=== PATIENT | male | born 1995 | race Caucasian/White ===

== ENCOUNTER 2020-03-25 12:00 | Emergency (ER) | payer OTHER, SELFPAY ==
--- NOTE | 2020-03-25 | XR_ITS ---
EXAMINATION: RIGHT ANKLE AND FOOT X-RAY CLINICAL INFORMATION: Pain. Trauma. COMPARISON: Previous x-ray February 2020 TECHNIQUE: 3 views of the right foot and 3 views of the right ankle FINDINGS: Right foot: Bone alignment is normal. No fracture or dislocation is seen. The joint spaces are normal. There is a plantar calcaneal spur. Soft tissues are otherwise normal. Right ankle: Bone alignment is normal. No fracture or dislocation is seen. The ankle mortise is normal. Soft tissues are normal. IMPRESSION: No fracture or dislocation seen.
--- NOTE | 2020-03-25 12:14 | ED.LOWEXIN ---
HPI - Extremity Injury (Lower) General Chief Complaint: Extremity Injury, Lower Stated Complaint: rt foot pain Time Seen by Provider: 03/25/20 12:10 Source: patient Mode of arrival: ambulatory Limitations: language barrier ( motor vehicle parts interpreter used) History of Present Illness HPI Narrative: R foot/ankle injury 3 weeks ago at work. Seen per patient and had negative x-rays. Placed on melecio wrap and given crutches. Patient tells me he has returned to work and works 12 hour days on his feet. he has not used the melecio wrap. He uses the crutches when he is not working. He has continued pain, swelling. He does not have a PCP for follow-up. MD complaint: ankle injury and foot injury Onset (ago): week(s) (3 weeks ago) Type of Injury: inversion Place: work Severity: moderate Relieving factors: immobilization and rest Exacerbating factors: weight bearing, movement and palpation Other symptoms: none Related Data Allergies Allergy/AdvReac Type Severity Reaction Status Date / Time latex [LATEX] Allergy Unknown RASH Unverified 03/04/20 19:27 Review of Systems Review of Systems: Yes all other systems are reviewed and are negative Constitutional: Constitutional: Reports no additional constitutional complaints, Denies body ache(s), Denies chills, Denies fever(s), Denies headache(s) and Denies weakness Eyes: Eyes: Reports no additional eye complaints and Denies change in vision ENT: Reports system reviewed and no additional complaints, except as documented, Denies dizziness, Denies headache(s), Denies nasal congestion, Denies nasal discharge and Denies neck pain Cardiovascular: Cardiovascular: Reports no additional cardiovascular complaints, Denies chest pain, Denies leg edema and Denies dyspnea Respiratory: Respiratory: Reports no additional respiratory complaints, Denies cough and Denies dyspnea Gastrointestinal: Gastrointestinal: Reports no additional gastrointestinal complaints, Denies abdominal pain, Denies diarrhea, Denies nausea and Denies vomiting Genitourinary: Genitourinary: Denies urinary incontinence Musculoskeletal: Musculoskeletal: Reports no additional musculoskeletal complaints, Denies back pain, Reports arthralgias, Reports joint swelling, Reports limited range of motion, Denies neck pain, Denies numbness and Denies tingling Integumentary/Breasts: Skin/Breast: Reports system reviewed and no additional complaints, except as docu and Denies rash Neurologic: Reports system reviewed and no additional complaints, except as documented, Denies Abnormal speech present, Denies dizziness, Denies headache(s), Denies numbness, Denies tingling and Denies weakness PMFSH Past Medical History Attestation statement: The following information was validated with the patient. Source: obtained from family and nursing notes reviewed Medical History Hypertension Social History Social History Advance Directives: No Advance Directives Information Provided: No Physical Exam Vital Signs and I&O and Narrative: Vital Signs and I&O: Vital Signs Temp 98 F 03/25/20 12:15 Pulse 100 03/25/20 13:23 Resp 19 03/25/20 13:23 BP 161/103 H 03/25/20 13:23 Pulse Ox 97 03/25/20 13:23 Intake & Output 03/24/20 03/25/20 03/25/20 18:59 06:59 18:59 Weight 127.006 kg Body Mass Index 39.0 Const: General: cooperative, healthy appearing, comfortable and no acute distress Orientation/consciousness: patient oriented x3 Limitations: no limitations HENMT: Head: Yes normal to inspection Ears: hearing grossly normal bilaterally General nose exam: Normal external nose present Face and sinus: Yes normal facial exam Mouth: Normal oral and palatal mucosa present Throat: Yes posterior oropharynx normal Eyes: General: appearance normal, both eyes and all related structures Pupils: Equal, round and reactive pupils present Neck: Neck: Yes normal visual inspection Chest: Chest palpation & inspection: normal inspection of the chest Resp: Effort & Inspection: normal respiratory effort Auscultation: clear to auscultation bilaterally Cardio: Rate: regular rate Rhythm: regular rhythm Peripheral pulses: Peripheral pulses 2+ throughout GI: Inspection: Yes normal to inspection Palpation (GI): Soft to palpation and nontender Auscultation: normal bowel sounds Back/Spine/Pelvis: Thoracic/Lumbar Spine: thoracic and lumbar spine normal to inspection Skin: General skin exam: no rashes or lesions noted Neuro: General: patient oriented x3, no focal motor deficits and normal sensation to monofilament Cranial nerves: Yes Equal, round and reactive pupils present Cognition (Neuro): normal cognition Speech: No Abnormal speech present Gait exam (Neuro): Normal gait present Motor exam (neuro): 5/5 motor strength present throughout Extrem: Other: pain on palpation over the anterior, medial ankle. Pain on palpation over the base of the 5th metatarsal. There is some ecchymosis over the dorsal aspect of the foot with some mild moderate swelling over the dorsal foot and medial and lateral ankle. Patient has pain with dorsal toe and plantar flexion but is able. Neurovascularly intact distally. General: Yes normal to inspection MDM - Extremity Injury (Lower) MDM Narrative Medical decision making narrative: Asymptomatic hypertension. Patient tells me he was taking medications for hypertension in [place] but moved here. He has been off his medicines for several months. He does have insurance but is having difficulty finding a primary care doctor. X-rays unremarkable. Likely sprain. It sounds like the patient has not been following previous recommendations for supportive care. I reinforced this as well as follow-up with [facility] is was a work related injury. Imaging Data ankle and foot x-ray: Attestation: I personally reviewed and interpreted this imaging study as follows: My impression: unremarkable Radiologist's impression: unremarkable no bony abnormality. Discharge Plan Discharge Clinical Impression: Ankle sprain and strain Patient Disposition: Home, Self-Care Instructions: Ankle Sprain (ED) Additional Instructions: Ice, elevation on 3 or more pillows Strict nonweightbearing Melecio wrap and crutches at all times Call [facility] for a follow-up appointment. [phone] Please establish a primary care doctor to manage your blood pressure Stand Alone Forms: Work/School Release Interventions: ED Discharge Assessment Last Done: 03/25/20 13:26 Discharge Date/Time: 03/25/20 13:27
[2020-03-25 12:15] VITALS: BP 172/103; PULSE 111; RESP 16; TEMP 36.6; O2SAT 98; BMI 39.0
[2020-03-25 13:23] VITALS: BP 161/103; PULSE 100; RESP 19; O2SAT 97
== END 2020-03-25 13:27 | disposition home or self-care (01) ==
PROVIDERS: Emergency Provider Internal Medicine
DX: S93.401A Sprain of unspecified ligament of right ankle, initial encounter (principal); S96.911A Strain of unspecified muscle and tendon at ankle and foot level, right foot, initial encounter; X58.XXXA Exposure to other specified factors, initial encounter; I10 Essential (primary) hypertension; Y93.9 Activity, unspecified; Y92.9 Unspecified place or not applicable; Y99.0 Civilian activity done for income or pay
CPT/HCPCS: 73610; 73630; 99283

== ENCOUNTER → 2020-04-05 10:22 | Outpatient (BNVA) | payer OTHER, SELFPAY | PROVIDERS: Visit Provider Physician Assistant Medical | DX: S93.401D Sprain of unspecified ligament of right ankle, subsequent encounter (principal); X58.XXXD Exposure to other specified factors, subsequent encounter | CPT/HCPCS: 99202 ==

== ENCOUNTER → 2020-04-09 11:49 | Outpatient (BNVA) | payer OTHER, SELFPAY | PROVIDERS: Visit Provider Physician Assistant Medical | DX: S93.401D Sprain of unspecified ligament of right ankle, subsequent encounter (principal); X58.XXXD Exposure to other specified factors, subsequent encounter; R20.2 Paresthesia of skin | CPT/HCPCS: 99213 ==

== ENCOUNTER → 2020-04-20 12:55 | Outpatient (BNVA) | payer OTHER, SELFPAY | PROVIDERS: Visit Provider Orthopaedic Surgery | DX: S93.401A Sprain of unspecified ligament of right ankle, initial encounter (principal) | CPT/HCPCS: 99202 ==

== ENCOUNTER → 2020-04-23 14:26 | Outpatient (BNVA) | payer OTHER, SELFPAY | PROVIDERS: Visit Provider Physician Assistant Medical | DX: S93.401D Sprain of unspecified ligament of right ankle, subsequent encounter (principal); S93.601D Unspecified sprain of right foot, subsequent encounter; X58.XXXD Exposure to other specified factors, subsequent encounter | CPT/HCPCS: 99213 ==

== ENCOUNTER 2020-04-28 15:00 | Outpatient (RCR) | payer OTHER, SELFPAY ==
--- NOTE | 2020-04-08 16:36 | MHC.PT.EP ---
[facility] [place] Office [place] Office [place] Office [address] [phone] F: [phone] F: [phone] F: [phone] F: [phone] Physical Therapy Plan of Care Date of Evaluation: 04/08/20 Date of Surgery: NA Diagnosis: R ankle sprain Assessment: 24 year old male referred for R ankle sprain . Pt reports of injuring his ankle at work about a month back. He injured himself while getting off a pellet gaurang. Per pt the pellet gaurang ran over his foot. Pt went to the ED after the injury where XRAY was done and he was sent back home. Per pt he returned back to work the next day. He had increased swelling after a few hours of work and was sent back to the ED. Pt was then advised to follow up with WC. Examination reveals 5/10 pain at rest and 7/10 pain with standing and walking, TTP around ankle joint line, decreased ankle ROM, decreased ankle muscle strength, altered posture, balance and gait. He lives with his who performs all the iADLs of the house and helps him with dressing lower body. He has been using a shower chair for showering. 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 He is a good candidate for PT based on age, goals, physical impairment and functional limitations. He would benefit from PT with ankle ROM exercises, B LE strengthening, stretches, balance training, gait training and functional training. Frequency and Duration: The patient will be seen 2/week for 5 weeks Short Term Goals: 1. Pt will have 50% decrease in pain in 2 weeks. 2. Pt will be able to move ankle through all planes of motion without pain in 3 weeks. Sonography Technician Goals: 1. Pt will be able to perform all ADLS without pain in 4 weeks. 2. Pt will return to PLOF in 5 weeks. Treatment Plan: Modalities to reduce pain, spasms and effusion. Manual therapy to restore motion and function. Therapeutic exercise to improve strength and flexibility. Neuromuscular re-education for posture and balance. Therapeutic activities to return to functional activities of daily living. Please sign and return to therapist. Thank you for your referral.
--- NOTE | 2020-05-31 15:51 | MHC.PT.DC ---
[facility] [place] Office [place] Office [place] Office [address] Veras [address] [phone] F: [phone] F: [phone] F: [phone] F: [phone] Physical Therapy Discharge Report Diagnosis: R ankle sprain Date of Surgery: injury 02/24 Date of Evaluation: 04/08/20 Date of Discharge: 05/31/20 Treatments to Date: 6 Cancellations to Date: 0 No Shows to Date: 0 Discharge Status: Improved Function Discharge Summary: Pt stated having improvements in the last few visits. Pt was suppose to be d/c from therapy in 2 visits however he canceled them due to family emergency. Pt did not return to therapy after. Pt therefore d/c from therapy. Electronically signed by: Zhane Pina DPT Please sign and return to therapist. Thank you for your referral.
== END 2020-05-31 15:52 | disposition other institution (70) ==
LOC: HO.PT 15:00
PROVIDERS: Visit Provider Physician Assistant Medical
DX: S93.401D Sprain of unspecified ligament of right ankle, subsequent encounter (principal); S93.601D Unspecified sprain of right foot, subsequent encounter
CPT/HCPCS: 97110; 97140; 97161; 97530

== ENCOUNTER → 2020-05-05 15:09 | Outpatient (BNVA) | payer OTHER, SELFPAY | PROVIDERS: PCP Internal Medicine; Visit Provider Physician Assistant Medical | DX: S93.401D Sprain of unspecified ligament of right ankle, subsequent encounter (principal); S93.601D Unspecified sprain of right foot, subsequent encounter; X58.XXXD Exposure to other specified factors, subsequent encounter | CPT/HCPCS: 99213 ==

== ENCOUNTER 2020-09-17 09:00 | Outpatient (REF) | payer OTHER, SELFPAY ==
[2020-09-17 09:37] LABS: MANUAL DIFF FLAG NO
[2020-09-17 09:55] LABS: Basophils Percent Auto 0.5 % (0-2); Eosinophils Absolute Auto 0.2 X10*3/uL (0.0-0.4); Eosinophils Percent Auto 2.9 % (0-4); Hematocrit 49.7 % (42-52); Imm Gran Abs Auto 0.02 X10*3/uL (0.00-0.03); Imm Gran Pct Auto 0.3 % (0.0-0.4); Lymphocytes Absolute Auto 2.7 X10*3/uL (1.2-4.9); Lymphocytes Percent Auto 41.5 % (20-40); Mean Corpuscular HGB Conc 34.2 g/dl (31.0-36.0); Mean Corpuscular Hemoglobin 31.5 pg (27.0-33.0); Monocytes Absolute Auto 0.6 X10*3/uL (0.1-1.2); Monocytes Percent Auto 9.7 % (2-11); Neutrophils Percent Auto 45.1 % (45-73); Platelet Count 274 X10*3/uL (160-400); Red Cell Distribution Width 12.4 % (11.0-16.0); White Blood Count 6.6 X10*3/uL (4.8-10.8)
[2020-09-17 10:32] LABS: Anion Gap 14 (12-20); Blood Urea Nitrogen 23 mg/dL (9-16); Calcium 8.9 mg/dL (8.4-10.2); Carbon Dioxide 28 mmol/L (22-29); Chloride 104 mmol/L (96-108); Cholesterol 183 mg/dL; Estimated Glomerular Filt Rate > 60; Glucose Fasting 116 mg/dL (60-99); HDL Cholesterol 32 mg/dL; LDL Cholesterol Calculated 110 mg/dl; Potassium 4.5 mmol/L (3.3-5.1); Sodium 141 mmol/L (135-145); Triglycerides 209 mg/dL
== END 2020-09-17 09:01 | disposition home or self-care (01) ==
LOC: HO.LAB 09:00
PROVIDERS: PCP Internal Medicine; Visit Provider Nurse Practitioner Family
DX: I10 Essential (primary) hypertension (principal)
CPT/HCPCS: 36415; 80048; 80061; 85025

== ENCOUNTER → 2021-04-06 15:03 | Outpatient (REF) | payer OTHER, SELFPAY ==
--- NOTE | 2021-04-06 15:06 | HM_ITS ---
Total monitoring time 4 days and 12 hours. Underlying rhythm is sinus. Minimum heart rate 57/Min. Maximum 143/Min. Average 93/Min. No atrial fibrillation of flutter. No pauses. No significant ectopy, tachy or Vern arrhythmias. No patient events. MTDD
== END ==
LOC: HO.CARD 15:03
PROVIDERS: Visit Provider Internal Medicine
DX: R00.0 Tachycardia, unspecified (principal)
CPT/HCPCS: 93242

== ENCOUNTER 2021-08-08 12:23 | Emergency (ER) | payer OTHER, SELFPAY ==
--- NOTE | ~2021-08-08 | XR_ITS ---
EXAMINATION: XR ANKLE, RIGHT CLINICAL INFORMATION: Right ankle injury. Pain. COMPARISON: None TECHNIQUE: AP, lateral, and mortise views of the right ankle. FINDINGS: The bones and soft tissues are normal. No fracture. Alignment is anatomic. Joint spaces are maintained. No joint effusion. There is a small calcaneal heel enthesophyte. There is dorsal talonavicular spurring. XR/XR ankle RT min 3V IMPRESSION: Small calcaneal heel enthesophyte. Mild dorsal talonavicular spurring. No visible acute fracture or dislocation seen.
[2021-08-08 13:29] VITALS: BP 164/92; PULSE 80; RESP 18; TEMP 36.8; O2SAT 97; BMI 41.1
[2021-08-08] MEDS: Ibuprofen 600 MG TABLET PO (13:34)
--- NOTE | 2021-08-08 14:26 | ED_ITS ---
HPI - General Adult General Chief complaint: Extremity Injury, Lower Stated complaint: foot pain Time Seen by Provider: 08/08/21 13:33 Source: patient, family and RN notes reviewed Mode of arrival: ambulatory Limitations: no limitations History of Present Illness HPI narrative: 26-year-old male is here today for complaining of right foot pain. Patient reports that he injured his foot one year ago at work. Patient reports that machine at work drove over the top of his foot. He states that his foot was doing well, and he had no pain. Patient reports that yesterday when he walked home from work he had increased pain in his right foot. Patient describes that the pain is in his heel and extends to the middle of his foot. Patient reports that the pain is worse when he is touching it. Patient reports that even slightest touch hurts his heel and bottom of his foot. Patient does report to have mild swelling without any redness or inflammation. Patient denies any new injury. Patient reports that he wears protective shoes at work and he did not step on anything sharp that could cause the pain. Patient was wearing steel boots at work yesterday and walked home in them. Reports of swelling to the bernadette soto of his foot, heal and inner ankle. Onset (ago): day(s) Related Data Previous Rx's Medication Instructions Recorded halobetasol propionate 0.05 % 1 applic TOPICAL BID 30 Days #15 g 05/10/20 topical cream clotrimazole-betamethasone 1 1 appl TOPICAL BID 14 Days #45 g 08/10/20 %-0.05 % topical cream lisinopril 20 1 tab PO DAILY #30 tab 03/22/21 mg-hydrochlorothiazide 12.5 mg tablet ibuprofen 600 mg tablet 600 mg PO Q8H PRN #20 tab 08/08/21 Allergies Allergy/AdvReac Type Severity Reaction Status Date / Time latex [LATEX] Allergy Intermediate RASH Verified 03/16/21 13:41 Review of Systems Review of Systems: Constitutional : No Weight loss, No Fever, No Chills, No Night Sweats, No Fatigue, No Malaise ENT/Mouth : No Hearing loss, No Ear Pain, No Nasal Congestion, No Sinus Pain, No Hoarseness, No sore throat, No Rhinorrhea, No Swallowing Difficulty Eyes: No Eye Pain, No Swelling, No Redness, No Foreign Body, No Discharge, No Vision Changes Cardiovascular : No Chest Pain, No SOB, No Dyspnea on Exertion, No Orthopnea, No Edema, No Palpitations Respiratory : No Cough, No Sputum, No Wheezing, No Smoke Exposure, No Dyspnea Gastrointestinal : No Nausea, No Vomiting, No Diarrhea, No Constipation, No abdominal Pain, No Hematochezia, No Melena Genitourinary : no irregular bleeding, No Dysuria, No Urinary Frequency, No Hematuria, No Urinary Incontinence, No Urgency, No Flank Pain, No Urinary Flow Changes, No Hesitancy Musculoskeletal : No joint pain, Myalgias, No Joint Swelling, R foot pain Skin : No Skin Lesions, No rash Neuro : No Weakness, No Numbness, No Paresthesias, No Loss of Consciousness, No Dizziness, No Headache Yes all other systems are reviewed and are negative [facility] Past Medical History Medical History (Updated 08/09/21 @ 00:00 by Deysi Sebastian) Hypertension Hypertension Hypertriglyceridemia Impaired glucose tolerance Morbid obesity with BMI of 45.0-49.9, adult Psoriasis Tachycardia Surgical History No pertinent past surgical history Family History Family History (Updated 03/16/21 @ 13:27 by BAM Jaquez) Mother No problems noted. Father No problems noted. Social History Social History Housing: Apartment Alcohol intake: never Patient Tobacco Use Status: Never used Tobacco Second Hand Smoke Exposure: Yes Advance Directives: No Advance Directives Information Provided: Yes service: No Current occupational status: unemployed Physical Exam ED Vital Signs: Vital Signs - 24 hr 08/08/21 13:29 Temperature 98.2 F Pulse Rate 80 Respiratory Rate 18 Blood Pressure 164/92 H Pulse Oximetry 97 BMI result Body Mass Index 41.1 Const General: cooperative, healthy appearing, comfortable, no acute distress and alert Orientation/consciousness: patient oriented x3 HENMT Head: Yes normal to inspection, Yes normocephalic and Yes atraumatic Eyes General: appearance normal, both eyes and all related structures Resp Effort & Inspection: normal respiratory effort and able to speak in complete sentences Auscultation: clear to auscultation bilaterally Cardio Rate: regular rate Rhythm: regular rhythm Heart sounds: S1 normal heart sound present and S2 normal heart sound present GI Inspection: Yes normal to inspection Neuro General: patient oriented x3 Extrem Right upper extremity: normal to inspection, full ROM and normal capillary refill Left upper extremity: normal to inspection, full ROM and normal capillary refill Right lower extremity: edema and foot (Swelling) Course Course Course Narrative: 26-year-old male is here today for complaining of the right foot pain. Patient had an injury 1 year ago where machine drove over his right foot. Patient reports that he had no fracture at that time. His foot healed and he was able to do his normal activities without having any pain to his feet. However, ye when he was at work he started having R foot pain. Patient denies any injuries at work during the day. Reports that he was wearing steel boots for protection. Patient reports that he walked wearing those boots home about couple miles. His pain got worse when he got home. Upon exam patient has tenderness to his plantar area just below his heel. Plantar fasciitis, will do x-ray to rule out any fracture. Patient is not diabetic. He is obese and needs to wear supportive and better footwear. Patient took ibuprofen earlier today, patient declines taking oxycodone or any other min medication to help him with pain at this time. Reevaluation(s) Reevaluation #1: X-ray negative for fracture or or any acute findings. Small calcaneal heel enthesophyte. Mild dorsal talonavicular spurring. No visible acute fracture or dislocation seen. Will send patient home with walking boot and ibuprofen for for pain. Patient was instructed to get better footwear. He was encouraged not to wear his steel-toed boots for anything except for work. Patient should wear supportive inserts Medical Decision Making Imaging Data foot x-ray: Attestation: I personally reviewed and interpreted this imaging study as follows: Radiologist's impression: FINDINGS: The bones and soft tissues are normal. No fracture. Alignment is anatomic. Joint spaces are maintained. No joint effusion. There is a small calcaneal heel enthesophyte. There is dorsal talonavicular spurring. XR/XR ankle RT min 3V IMPRESSION: Small calcaneal heel enthesophyte. ? Mild dorsal talonavicular spurring. No visible acute fracture or dislocation seen. Discharge Plan Discharge Clinical Impression: Plantar fasciitis Patient Disposition: Home, Self-Care Instructions: Plantar Fasciitis (ED), Plantar Fasciitis Exercises (ED) Additional Instructions: You were seen here today for right foot pain. You have swelling of tendon and muscle in your foot. Please wear walking boot for now, follow-up with orthopedic doctor and your primary care provider. You will be given ibuprofen for pain control. You may return to emergency department if your symptoms will get worse or if you experience any additional concerning symptoms. Prescriptions: New ibuprofen 600 mg tablet 600 mg PO Q8H PRN (Reason: pain) Qty: 20 0RF No Action lisinopril-hydrochlorothiazide 20-12.5 mg tablet 1 tab PO DAILY Qty: 30 6RF clotrimazole-betamethasone 1-0.05 % cream 1 appl topical BID 14 Days Qty: 45 6RF halobetasol propionate 0.05 % cream 1 applic topical BID 30 Days Qty: 15 0RF Referrals: Morgan Christina MD [Physician] - 1 week (Plantar fasciitis of right foot) Kimberley Zapien MD [Primary Care Provider] - 1 week Stand Alone Forms: Work/School Release Interventions: ED Discharge Assessment Last Done: 08/08/21 15:00 Discharge Date/Time: 08/08/21 15:02
== END 2021-08-08 15:02 | disposition home or self-care (01) ==
PROVIDERS: Emergency Provider Emergency Medicine; PCP Internal Medicine
DX: M72.2 Plantar fascial fibromatosis (principal); M25.571 Pain in right ankle and joints of right foot; R60.0 Localized edema; Z79.899 Other long term (current) drug therapy
CPT/HCPCS: 73610; 99283

== ENCOUNTER 2021-08-13 17:25 | Emergency (ER) | payer OTHER, SELFPAY ==
[2021-08-13 17:38] VITALS: BP 136/79; PULSE 111; RESP 18; TEMP 36.9; O2SAT 94; BMI 41.1
--- NOTE | 2021-08-13 18:47 | ED.EXTPRO ---
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 complaining of pain in the right foot dorsum for last 1 week was seen here few days ago x-ray was negative since yesterday noticed redness on the dorsum of the foot with increased pain no skin breakdown but patient had pain threaded redness also does the resting pain gets worse on ambulation no injury Related Data Previous Rx's Medication Instructions Recorded halobetasol propionate 0.05 % 1 applic TOPICAL BID 30 Days #15 g 05/10/20 topical cream clotrimazole-betamethasone 1 1 appl TOPICAL BID 14 Days #45 g 08/10/20 %-0.05 % topical cream lisinopril 20 1 tab PO DAILY #30 tab 03/22/21 mg-hydrochlorothiazide 12.5 mg tablet ibuprofen 600 mg tablet 600 mg PO Q8H PRN #20 tab 08/08/21 cephalexin 500 mg capsule 500 mg PO QID 10 Days #40 cap 08/13/21 doxycycline hyclate 100 mg tablet 100 mg PO BID #20 tab 08/13/21 oxycodone 5 mg tablet 5 mg PO Q6H PRN #20 tab 08/13/21 prednisone 20 mg tablet 60 mg PO DAILY #15 tab 08/13/21 Allergies Allergy/AdvReac Type Severity Reaction Status Date / Time latex [LATEX] Allergy Intermediate RASH Verified 03/16/21 13:41 Review of Systems Review of Systems: Yes all other systems are reviewed and are negative [facility] Past Medical History Medical History Hypertension Hypertension Hypertriglyceridemia Impaired glucose tolerance Morbid obesity with BMI of 45.0-49.9, adult Psoriasis Tachycardia Surgical History No pertinent past surgical history Family History Family History Mother No problems noted. Father No problems noted. Social History Social History Housing: Apartment Alcohol intake: never Patient Tobacco Use Status: Never used Tobacco Second Hand Smoke Exposure: Yes Advance Directives: No Advance Directives Information Provided: No service: No Current occupational status: unemployed Physical Exam Vital Signs: Vital Signs: Last Vital Signs Temp 98.5 F 08/13/21 17:38 Pulse 111 H 08/13/21 17:38 Resp 18 08/13/21 17:38 BP 136/79 08/13/21 17:38 Pulse Ox 94 08/13/21 17:38 BMI result Body Mass Index 41.1 Const: General: healthy appearing and comfortable Extrem: Right lower extremity: full ROM, normal capillary refill and no joint enlargement Ankle/foot/toe images: 1. Erythema with tenderness right dorsum of the foot no skin breakdown, neurovascular intact MDM - Extremity (Nontraumatic) MDM Narrative Medical decision making narrative: Patient right foot pain likely from gout now has slight erythema of the skin possible cellulitis will discharge patient home on doxycycline, Keflex and prednisone Discharge Plan Discharge Clinical Impression: Cellulitis of foot without toes, right, Gout Patient Disposition: Home, Self-Care Instructions: Cellulitis (ED), Gout (ED) Additional Instructions: You possibly have gout with cellulitis Take medication as prescribed Use crutches to ambulate Rest your right foot Follow-up with your PCP Report to the PCP/ER if worsening of the redness on the foot or pain Prescriptions: New cephalexin 500 mg capsule 500 mg PO QID 10 Days Qty: 40 0RF doxycycline hyclate 100 mg tablet 100 mg PO BID Qty: 20 0RF oxycodone 5 mg tablet 5 mg PO Q6H PRN (Reason: Pain (Scale Score 4-6)) Qty: 20 0RF prednisone 20 mg tablet 60 mg PO DAILY Qty: 15 0RF No Action lisinopril-hydrochlorothiazide 20-12.5 mg tablet 1 tab PO DAILY Qty: 30 6RF ibuprofen 600 mg tablet 600 mg PO Q8H PRN (Reason: pain) Qty: 20 0RF clotrimazole-betamethasone 1-0.05 % cream 1 appl topical BID 14 Days Qty: 45 6RF halobetasol propionate 0.05 % cream 1 applic topical BID 30 Days Qty: 15 0RF Stand Alone Forms: Work/School Release
[2021-08-13] MEDS: predniSONE 20 MG TABLET 60 MG PO (19:02)
[2021-08-13] MEDS: oxyCODONE HCl Immed Release 5 MG TABLET 10 MG PO (19:02)
[2021-08-13] MEDS: cephALEXin 500 MG CAPSULE PO (19:03)
== END 2021-08-13 19:46 | disposition home or self-care (01) ==
PROVIDERS: Emergency Provider Internal Medicine; PCP Internal Medicine
DX: L03.115 Cellulitis of right lower limb (principal); M10.9 Gout, unspecified; M79.671 Pain in right foot
CPT/HCPCS: 99283; 99284

== ENCOUNTER 2021-08-18 16:13 | Inpatient (IN) | payer OTHER, SELFPAY ==
[2021-08-18 16:25] VITALS: BP 150/92; PULSE 115; RESP 18; TEMP 36.6; O2SAT 98; BMI 45.8
[2021-08-18 16:36] LABS: Glucose, Whole Blood > 600 mg/dL (60-115)
[2021-08-18 16:36] LABS: Glucose, Whole Blood > 600 mg/dL (60-115)
[2021-08-18 16:41] LABS: MANUAL DIFF FLAG NO
[2021-08-18 16:43] LABS: Basophils Absolute Auto 0.1 X10*3/uL (0.0-0.2); Basophils Percent Auto 0.6 % (0-2); Eosinophils Absolute Auto 0.2 X10*3/uL (0.0-0.4); Eosinophils Percent Auto 1.8 % (0-4); Hematocrit 49.6 % (42.0-52.0); Hemoglobin 17.9 g/dl (14.0-18.0); Imm Gran Abs Auto 0.04 X10*3/uL (0.00-0.03); Imm Gran Pct Auto 0.3 % (0.0-0.4); Lymphocytes Absolute Auto 2.6 X10*3/uL (1.2-4.9); Lymphocytes Percent Auto 22.6 % (20-40); Mean Corpuscular HGB Conc 36.1 g/dl (31.0-36.0); Mean Corpuscular Hemoglobin 31.6 pg (27.0-33.0); Mean Corpuscular Volume 87.6 fL (80.0-98.0); Mean Platelet Volume 10.4 fL (9.4-12.4); Monocytes Absolute Auto 0.8 X10*3/uL (0.1-1.2); Monocytes Percent Auto 6.8 % (2-11); Neutrophils Absolute Auto 7.8 x10*3/uL (2.0-8.3); Neutrophils Percent Auto 67.9 % (45-73); Platelet Count 320 X10*3/uL (160-400); Red Blood Count 5.66 X10*6/uL (4.60-5.80); Red Cell Distribution Width 11.9 % (11.0-16.0); White Blood Count 11.5 X10*3/uL (4.8-10.8)
[2021-08-18 17:06] LABS: Acetone, serum QL Negative (Negative)
[2021-08-18 17:10] LABS: Alanine Aminotransferase 72 U/L (0-40); Albumin Level 4.6 g/dL (3.5-5.0); Alkaline Phosphatase 110 U/L (39-117); Anion Gap 14 (12-20); Aspartate Amino Transferase 36 U/L (5-37); Bilirubin Total 0.5 mg/dL (0.0-1.0); Blood Urea Nitrogen 32 mg/dL (9-16); Calcium 10.5 mg/dL (8.4-10.2); Carbon Dioxide 31 mmol/L (22-29); Chloride 91 mmol/L (96-108); Creatinine Clr Calc Pharmacy 73.4; Estimated Glomerular Filt Rate 35; Glucose Random 719 mg/dL (60-115); Potassium 5.1 mmol/L (3.3-5.1); Sodium 131 mmol/L (135-145); Total Protein 7.9 g/dL (6.5-8.0)
--- NOTE | 2021-08-18 17:10 | ECG_ITS ---
Test Reason : HYPERGYCIMIA Blood Pressure : / mmHG Vent. Rate : 111 BPM Atrial Rate : 111 BPM P-R Int : 150 ms QRS Dur : 096 ms QT Int : 358 ms P-R-T Axes : 051 048 006 degrees QTc Int : 486 ms Sinus tachycardia Possible Left atrial enlargement Borderline ECG No previous ECGs available Referred By: Fior Eugene Electronically Signed By:Pan Banegas
--- NOTE | 2021-08-18 17:10 | ED.RECABL ---
HPI - Recheck/Abnormal Lab/Rx General Chief Complaint: Recheck/Abnormal Lab/Rx <ASHLEY Juarez - Last Filed: 08/18/21 17:53> Stated Complaint: High Glucose <ASHLEY Juarez Last Filed: 08/18/21 17:53> Time Seen by Provider: 08/18/21 16:45 <ASHLEY Juarez Last Filed: 08/18/21 17:53> Source: patient <ASHLEY Juarez Last Filed: 08/18/21 17:53> Mode of arrival: ambulatory <ASHLEY Juarez Last Filed: 08/18/21 17:53> History of Present Illness HPI narrative: 26-year-old male with past medical history of hypertension, HLD, impaired glucose tolerance, morbid obesity, psoriasis, tachycardia, presenting to the ED complaining of polyuria and polydipsia and glucometer reading high at home. Denies personal history of diabetes, admits grandmother with history of diabetes. Of note patient evaluated in our ED on 08/08 in 08/13 for right foot pain diagnosed with cellulitis/gout started on antibiotics and prednisone. In triage glucometer reading high. Denies fever, chills, CP/SOB, abdominal pain, nausea/vomiting, recent illness <ASHLEY Juarez Last Filed: 08/18/21 17:53> Related Data Home Medications: Home Medications Medication Instructions Recorded Confirmed prednisone 20 mg tablet 3 tab PO DAILY 08/18/21 08/18/21 Previous Rx's Medication Instructions Recorded lisinopril 20 1 tab PO DAILY #30 tab 03/22/21 mg-hydrochlorothiazide 12.5 mg tablet cephalexin 500 mg capsule 500 mg PO QID 10 Days #40 cap 08/13/21 doxycycline hyclate 100 mg tablet 100 mg PO BID #20 tab 08/13/21 oxycodone 5 mg tablet 5 mg PO Q6H PRN #20 tab 08/13/21 <ASHLEY Juarez Last Filed: 08/18/21 17:53> Allergies/Adverse Reactions: Allergies Allergy/AdvReac Type Severity Reaction Status Date / Time latex [LATEX] Allergy Intermediate RASH Verified 08/18/21 16:25 <ASHLEY Juarez Last Filed: 08/18/21 17:53> Review of Systems Review of Systems: Constitutional: No Fever, No Chills, No Fatigue, No Malaise ENT/Mouth: No Ear Pain, No Nasal Congestion, No sore throat, No Rhinorrhea, No Swallowing Difficulty Eyes: No Eye Pain, No Swelling, No Redness, No Discharge, No Vision Changes Cardiovascular: No Chest Pain, No SOB, No Edema, No Palpitations Respiratory: No Cough, No Sputum, No Dyspnea Gastrointestinal: No Nausea, No Vomiting, No Diarrhea, No Constipation, No Abdominal pain, Genitourinary: No Dysuria, + Urinary Frequency, No Hematuria, No Urinary Incontinence, No Urinary Flow Changes, No Hesitancy Musculoskeletal: No joint pain, No Myalgias, No Joint Swelling Skin: No Skin Lesions, No rash Neuro: No Weakness, No Numbness, No Dizziness, + Headache Endocrine: + Polyuria, + Polydipsia, No Temperature Intolerance <ASHLEY Juarez - Last Filed: 08/18/21 17:53> Yes all other systems are reviewed and are negative <ASHLEY Juarez - Last Filed: 08/18/21 17:53> [facility] Past Medical History Attestation statement: The following information was validated with the patient. <ASHLEY Juarez - Last Filed: 08/18/21 17:53> Medical History: Medical History Hypertension Hypertension Hypertriglyceridemia Impaired glucose tolerance Morbid obesity with BMI of 45.0-49.9, adult Psoriasis Tachycardia <ASHLEY Juarez - Last Filed: 08/18/21 17:53> Surgical History: Surgical History No pertinent past surgical history <ASHLEY Juarez - Last Filed: 08/18/21 17:53> Family History Family History: Family History Mother No problems noted. Father No problems noted. <ASHLEY Juarez - Last Filed: 08/18/21 17:53> Social History Social History: Social History Housing: Apartment Alcohol intake: never Patient Tobacco Use Status: Never used Tobacco Second Hand Smoke Exposure: Yes Advance Directives: No Advance Directives Information Provided: No service: No Current occupational status: unemployed <ASHLEY Juarez - Last Filed: 08/18/21 17:53> Physical Exam Vital Signs: Vital Signs: Last Vital Signs Temp 97.1 F 08/18/21 23:58 Pulse 86 08/18/21 23:58 Resp 18 08/18/21 23:58 BP 113/60 08/18/21 23:58 Pulse Ox 99 08/18/21 23:58 BMI result Body Mass Index 45.8 <ASHLEY Juarez - Last Filed: 08/18/21 17:53> Vital Signs: Last Vital Signs Temp 97.1 F 08/18/21 23:58 Pulse 86 08/18/21 23:58 Resp 18 08/18/21 23:58 BP 113/60 08/18/21 23:58 Pulse Ox 99 08/18/21 23:58 BMI result Body Mass Index 45.8 <ASHLEY Estrada - Last Filed: 08/19/21 02:12> Const: General: cooperative, healthy appearing and no acute distress <ASHLEY Juarez - Last Filed: 08/18/21 17:53> Orientation/consciousness: patient oriented x3 <ASHLEY Juarez - Last Filed: 08/18/21 17:53> Limitations: no limitations <ASHLEY Juarez - Last Filed: 08/18/21 17:53> HENMT: Head: Yes normal to inspection and Yes atraumatic <ASHLEY Juarez - Last Filed: 08/18/21 17:53> Ears: hearing grossly normal bilaterally <ASHLEY Juarez - Last Filed: 08/18/21 17:53> General nose exam: Normal external nose present <ASHLEY Juarez - Last Filed: 08/18/21 17:53> Face and sinus: Yes normal facial exam <ASHLEY Juarez Last Filed: 08/18/21 17:53> Eyes: General: appearance normal, both eyes and all related structures <ASHLEY Juarez - Last Filed: 08/18/21 17:53> EOM: EOMs intact bilaterally <Fior Pouliot, PA - Last Filed: 08/18/21 17:53> Neck: Neck: Yes normal visual inspection and Yes no meningeal signs <Fior Pouliot, PA - Last Filed: 08/18/21 17:53> Resp: Effort & Inspection: normal respiratory effort <Fior Pouliot, PA - Last Filed: 08/18/21 17:53> Auscultation: clear to auscultation bilaterally, no rales, no rhonchi and no wheezes <Fior Pouliot, PA - Last Filed: 08/18/21 17:53> Cardio: Rate: regular rate and tachycardic <Fior Pouliot, PA - Last Filed: 08/18/21 17:53> Heart sounds: S1 normal heart sound present and S2 normal heart sound present <Fior Pouliot, PA - Last Filed: 08/18/21 17:53> GI: Inspection: Yes normal to inspection <Fior Pouliot, PA - Last Filed: 08/18/21 17:53> Palpation (GI): Soft to palpation, nontender, no guarding and not rigid <Fior Pouliot, PA - Last Filed: 08/18/21 17:53> : General: Yes no CVA tenderness <Fior Pouliot, PA - Last Filed: 08/18/21 17:53> Back/Spine/Pelvis: Back: no CVA tenderness <Fior Pouliot, PA - Last Filed: 08/18/21 17:53> Skin: Rashes: no rashes <Fior Pouliot, PA - Last Filed: 08/18/21 17:53> Wounds: no wounds <Fior Pouliot, PA - Last Filed: 08/18/21 17:53> Neuro: General: patient oriented x3 and no meningeal signs <Fior Pouliot, PA - Last Filed: 08/18/21 17:53> Gait exam (Neuro): Normal gait present <Fior Pouliot, PA - Last Filed: 08/18/21 17:53> Extrem: Other: Right foot without erythema or warmth. Mildly tender over lateral dorsum. Neurovascular intact. No crepitus. <Fior Pouliot, PA - Last Filed: 08/18/21 17:53> Course Course Course Narrative: -1720--mild leukocytosis of 11.5, hyperglycemic with a glucose of 719, hyponatremic 131, corrected for hyperglycemia = Na+ 141 -ASHLYN with BUN 32 and Cr 2.22 likely from dehydration rather than severe sepsis. ALT 72. Acetone negative >> will start with 1L NS, 1L LR and 10 units IV insulin -1800--ED care transferred to [facility] pending remaining labs, glucose monitoring and treatment. Dispo per results <ASHLEY Juarez Last Filed: 08/18/21 17:53> Reevaluation(s) Reevaluation #1: Patient admitted to the hospital for new onset diabetes. Patient's fingerstick improved from 700 to 375, but hospitalist recommend patient be observed overnight and receive diabetic Education in the morning. Also possible evaluation with endocrinology. Patient agreeable to be admitted. Patient still in [facility]. <ASHLEY Estrada Last Filed: 08/19/21 02:12> Time: 02:11 <ASHLEY Estrada - Last Filed: 08/19/21 02:12> MDM - Recheck/Abnormal Lab/Rx MDM Narrative Medical decision making narrative: 26-year-old male with past medical history of hypertension, HLD, impaired glucose tolerance, morbid obesity, psoriasis, tachycardia, presenting to the ED complaining of polyuria and polydipsia and glucometer reading high at home. On exam tachycardic, mildly hypertensive, NAD, physical exam as above. Right foot with mild tenderness which appears acute on chronic no evidence of active cellulitis. Concern for new onset diabetes with DKA vs HHS. Rule out metabolic and infectious etiologies. Low concern for severe sepsis as tachycardia likely dehydration, tachypnea likely from acidosis plan: EKG, labs, UA, IVF, re-evaluate <ASHLEY Juarez Last Filed: 08/18/21 17:53> Medical Records Attestation: I reviewed the patient's medical records. <ASHLEY Juarez Last Filed: 08/18/21 17:53> Lab Data Attestation: I reviewed the patient's lab results. <ASHLEY Juarez Last Filed: 08/18/21 17:53> Result diagrams: : 08/18/21 16:37 08/18/21 20:24 <ASHLEY Juarez - Last Filed: 08/18/21 17:53> Labs: Lab Results 08/18/21 08/18/21 08/18/21 Range/Units 16:28 16:30 16:37 WBC 11.5 H (4.8-10.8) X10*3/uL RBC 5.66 (4.60-5.80) X10*6/uL Hgb 17.9 (14.0-18.0) g/dl Hct 49.6 (42.0-52.0) % MCV 87.6 (80.0-98.0) fL MCH 31.6 (27.0-33.0) pg MCHC 36.1 H (31.0-36.0) g/dl RDW 11.9 (11.0-16.0) % Plt Count 320 (160-400) X10*3/uL MPV 10.4 (9.4-12.4) fL Immature Gran % (Auto) 0.3 (0.0-0.4) % Neut % (Auto) 67.9 (45-73) % Lymph % (Auto) 22.6 (20-40) % [place] % (Auto) 6.8 (2-11) % Eos % (Auto) 1.8 (0-4) % Baso % (Auto) 0.6 (0-2) % Lymph # (Auto) 2.6 (1.2-4.9) X10*3/uL [place] # (Auto) 0.8 (0.1-1.2) X10*3/uL Eos # (Auto) 0.2 (0.0-0.4) X10*3/uL Baso # (Auto) 0.1 (0.0-0.2) X10*3/uL Abs Immat Gran (auto) 0.04 H (0.00-0.03) X10*3/uL Absolute Neuts (auto) 7.8 (2.0-8.3) x10*3/uL Absolute Nucleated RBC 0.000 (0.0-0.012) X10*3/uL Nucleated RBC % (auto) 0.0 (0.0-0.2) /100WBC VBG pH (7.32-7.43) VBG pCO2 mmHg VBG pO2 mmHg VBG HCO3 (22-26) mmol/L VBG O2 Saturation % VBG Base Excess mmol/L Sodium (135-145) mmol/L Potassium (3.3-5.1) mmol/L Chloride (96-108) mmol/L Carbon Dioxide (22-29) mmol/L Anion Gap (12-20) BUN (9-16) mg/dL Creatinine (0.5-1.4) mg/dL Estim Creat Clear Calc Estimated GFR POC Glucose > 600 H* > 600 H* (60-115) mg/dL Random Glucose (60-115) mg/dL Estimat Average Glucose mg/dL Hemoglobin A1c % % Lactic Acid (0.5-2.0) mmol/L Lactic Acid F/U @ 2Hr (0.5-2.0) mmol/L Calcium (8.4-10.2) mg/dL Magnesium (1.6-2.6) mg/dL Total Bilirubin (0.0-1.0) mg/dL AST (5-37) U/L ALT (0-40) U/L Alkaline Phosphatase (39-117) U/L Total Protein (6.5-8.0) g/dL Albumin (3.5-5.0) g/dL Lipase (8-78) U/L Urine Color Urine Appearance Urine pH (5.0-8.0) Ur Specific [place] (1.005-1.025) Urine Protein (NEG-TRACE) MG/DL Urine Glucose (UA) (NEG) MG/DL Urine Ketones (NEG) MG/DL Urine Blood (NEG) Urine Nitrite (NEG) Ur Leukocyte Esterase (NEG) Urine RBC (0) /HPF Urine WBC (0-4) /HPF Ur Squamous Epith Cells /LPF Urine Bacteria /LPF Acetone, Qual (Negative) COVID-19 (DAVID) (Negative) COVID-19 Clin Com 08/18/21 08/18/21 08/18/21 Range/Units 16:37 17:57 17:57 WBC (4.8-10.8) X10*3/uL RBC (4.60-5.80) X10*6/uL Hgb (14.0-18.0) g/dl Hct (42.0-52.0) % MCV (80.0-98.0) fL MCH (27.0-33.0) pg MCHC (31.0-36.0) g/dl RDW (11.0-16.0) % Plt Count (160-400) X10*3/uL MPV (9.4-12.4) fL Immature Gran % (Auto) (0.0-0.4) % Neut % (Auto) (45-73) % Lymph % (Auto) (20-40) % [place] % (Auto) (2-11) % Eos % (Auto) (0-4) % Baso % (Auto) (0-2) % Lymph # (Auto) (1.2-4.9) X10*3/uL [place] # (Auto) (0.1-1.2) X10*3/uL Eos # (Auto) (0.0-0.4) X10*3/uL Baso # (Auto) (0.0-0.2) X10*3/uL Abs Immat Gran (auto) (0.00-0.03) X10*3/uL Absolute Neuts (auto) (2.0-8.3) x10*3/uL Absolute Nucleated RBC (0.0-0.012) X10*3/uL Nucleated RBC % (auto) (0.0-0.2) /100WBC VBG pH (7.32-7.43) VBG pCO2 mmHg VBG pO2 mmHg VBG HCO3 (22-26) mmol/L VBG O2 Saturation % VBG Base Excess mmol/L Sodium 131 L (135-145) mmol/L Potassium 5.1 (3.3-5.1) mmol/L Chloride 91 L (96-108) mmol/L Carbon Dioxide 31 H (22-29) mmol/L Anion Gap 14 (12-20) BUN 32 H (9-16) mg/dL Creatinine 2.22 H (0.5-1.4) mg/dL Estim Creat Clear Calc 73.4 Estimated GFR 35 POC Glucose (60-115) mg/dL Random Glucose 719 H* (60-115) mg/dL Estimat Average Glucose mg/dL Hemoglobin A1c % % Lactic Acid 2.3 H* (0.5-2.0) mmol/L Lactic Acid F/U @ 2Hr (0.5-2.0) mmol/L Calcium 10.5 H D (8.4-10.2) mg/dL Magnesium 2.2 (1.6-2.6) mg/dL Total Bilirubin 0.5 (0.0-1.0) mg/dL AST 36 (5-37) U/L ALT 72 H (0-40) U/L Alkaline Phosphatase 110 (39-117) U/L Total Protein 7.9 (6.5-8.0) g/dL Albumin 4.6 (3.5-5.0) g/dL Lipase 34 (8-78) U/L Urine Color Urine Appearance Urine pH (5.0-8.0) Ur Specific [place] (1.005-1.025) Urine Protein (NEG-TRACE) MG/DL Urine Glucose (UA) (NEG) MG/DL Urine Ketones (NEG) MG/DL Urine Blood (NEG) Urine Nitrite (NEG) Ur Leukocyte Esterase (NEG) Urine RBC (0) /HPF Urine WBC (0-4) /HPF Ur Squamous Epith Cells /LPF Urine Bacteria /LPF Acetone, Qual Negative (Negative) COVID-19 (DAVID) Negative (Negative) COVID-19 Clin Com See Note 08/18/21 08/18/21 08/18/21 Range/Units 17:57 17:57 17:58 WBC (4.8-10.8) X10*3/uL RBC (4.60-5.80) X10*6/uL Hgb (14.0-18.0) g/dl Hct (42.0-52.0) % MCV (80.0-98.0) fL MCH (27.0-33.0) pg MCHC (31.0-36.0) g/dl RDW (11.0-16.0) % Plt Count (160-400) X10*3/uL MPV (9.4-12.4) fL Immature Gran % (Auto) (0.0-0.4) % Neut % (Auto) (45-73) % Lymph % (Auto) (20-40) % [place] % (Auto) (2-11) % Eos % (Auto) (0-4) % Baso % (Auto) (0-2) % Lymph # (Auto) (1.2-4.9) X10*3/uL [place] # (Auto) (0.1-1.2) X10*3/uL Eos # (Auto) (0.0-0.4) X10*3/uL Baso # (Auto) (0.0-0.2) X10*3/uL Abs Immat Gran (auto) (0.00-0.03) X10*3/uL Absolute Neuts (auto) (2.0-8.3) x10*3/uL Absolute Nucleated RBC (0.0-0.012) X10*3/uL Nucleated RBC % (auto) (0.0-0.2) /100WBC VBG pH 7.42 (7.32-7.43) VBG pCO2 36 mmHg VBG pO2 91 mmHg VBG HCO3 24 (22-26) mmol/L VBG O2 Saturation 98.0 % VBG Base Excess 0.2 mmol/L Sodium (135-145) mmol/L Potassium (3.3-5.1) mmol/L Chloride (96-108) mmol/L Carbon Dioxide (22-29) mmol/L Anion Gap (12-20) BUN (9-16) mg/dL Creatinine (0.5-1.4) mg/dL Estim Creat Clear Calc Estimated GFR POC Glucose (60-115) mg/dL Random Glucose (60-115) mg/dL Estimat Average Glucose 272 mg/dL Hemoglobin A1c % 11.1 % Lactic Acid (0.5-2.0) mmol/L Lactic Acid F/U @ 2Hr (0.5-2.0) mmol/L Calcium (8.4-10.2) mg/dL Magnesium (1.6-2.6) mg/dL Total Bilirubin (0.0-1.0) mg/dL AST (5-37) U/L ALT (0-40) U/L Alkaline Phosphatase (39-117) U/L Total Protein (6.5-8.0) g/dL Albumin (3.5-5.0) g/dL Lipase (8-78) U/L Urine Color YELLOW Urine Appearance CLEAR Urine pH 6.0 (5.0-8.0) Ur Specific [place] 1.010 (1.005-1.025) Urine Protein NEG (NEG-TRACE) MG/DL Urine Glucose (UA) >=1000 H (NEG) MG/DL Urine Ketones NEG (NEG) MG/DL Urine Blood NEG (NEG) Urine Nitrite NEG (NEG) Ur Leukocyte Esterase NEG (NEG) Urine RBC 0-2 (0) /HPF Urine WBC 0-2 (0-4) /HPF Ur Squamous Epith Cells NONE /LPF Urine Bacteria NONE /LPF Acetone, Qual (Negative) COVID-19 (DAVID) (Negative) COVID-19 Clin Com 08/18/21 08/18/21 08/18/21 Range/Units 18:57 20:05 20:24 WBC (4.8-10.8) X10*3/uL RBC (4.60-5.80) X10*6/uL Hgb (14.0-18.0) g/dl Hct (42.0-52.0) % MCV (80.0-98.0) fL MCH (27.0-33.0) pg MCHC (31.0-36.0) g/dl RDW (11.0-16.0) % Plt Count (160-400) X10*3/uL MPV (9.4-12.4) fL Immature Gran % (Auto) (0.0-0.4) % Neut % (Auto) (45-73) % Lymph % (Auto) (20-40) % [place] % (Auto) (2-11) % Eos % (Auto) (0-4) % Baso % (Auto) (0-2) % Lymph # (Auto) (1.2-4.9) X10*3/uL [place] # (Auto) (0.1-1.2) X10*3/uL Eos # (Auto) (0.0-0.4) X10*3/uL Baso # (Auto) (0.0-0.2) X10*3/uL Abs Immat Gran (auto) (0.00-0.03) X10*3/uL Absolute Neuts (auto) (2.0-8.3) x10*3/uL Absolute Nucleated RBC (0.0-0.012) X10*3/uL Nucleated RBC % (auto) (0.0-0.2) /100WBC VBG pH (7.32-7.43) VBG pCO2 mmHg VBG pO2 mmHg VBG HCO3 (22-26) mmol/L VBG O2 Saturation % VBG Base Excess mmol/L Sodium (135-145) mmol/L Potassium (3.3-5.1) mmol/L Chloride (96-108) mmol/L Carbon Dioxide (22-29) mmol/L Anion Gap (12-20) BUN (9-16) mg/dL Creatinine (0.5-1.4) mg/dL Estim Creat Clear Calc Estimated GFR POC Glucose 423 H* 357 H* (60-115) mg/dL Random Glucose (60-115) mg/dL Estimat Average Glucose mg/dL Hemoglobin A1c % % Lactic Acid (0.5-2.0) mmol/L Lactic Acid F/U @ 2Hr 1.7 (0.5-2.0) mmol/L Calcium (8.4-10.2) mg/dL Magnesium (1.6-2.6) mg/dL Total Bilirubin (0.0-1.0) mg/dL AST (5-37) U/L ALT (0-40) U/L Alkaline Phosphatase (39-117) U/L Total Protein (6.5-8.0) g/dL Albumin (3.5-5.0) g/dL Lipase (8-78) U/L Urine Color Urine Appearance Urine pH (5.0-8.0) Ur Specific [place] (1.005-1.025) Urine Protein (NEG-TRACE) MG/DL Urine Glucose (UA) (NEG) MG/DL Urine Ketones (NEG) MG/DL Urine Blood (NEG) Urine Nitrite (NEG) Ur Leukocyte Esterase (NEG) Urine RBC (0) /HPF Urine WBC (0-4) /HPF Ur Squamous Epith Cells /LPF Urine Bacteria /LPF Acetone, Qual (Negative) COVID-19 (DAVID) (Negative) COVID-19 Clin Com 08/18/21 Range/Units 20:24 WBC (4.8-10.8) X10*3/uL RBC (4.60-5.80) X10*6/uL Hgb (14.0-18.0) g/dl Hct (42.0-52.0) % MCV (80.0-98.0) fL MCH (27.0-33.0) pg MCHC (31.0-36.0) g/dl RDW (11.0-16.0) % Plt Count (160-400) X10*3/uL MPV (9.4-12.4) fL Immature Gran % (Auto) (0.0-0.4) % Neut % (Auto) (45-73) % Lymph % (Auto) (20-40) % [place] % (Auto) (2-11) % Eos % (Auto) (0-4) % Baso % (Auto) (0-2) % Lymph # (Auto) (1.2-4.9) X10*3/uL [place] # (Auto) (0.1-1.2) X10*3/uL Eos # (Auto) (0.0-0.4) X10*3/uL Baso # (Auto) (0.0-0.2) X10*3/uL Abs Immat Gran (auto) (0.00-0.03) X10*3/uL Absolute Neuts (auto) (2.0-8.3) x10*3/uL Absolute Nucleated RBC (0.0-0.012) X10*3/uL Nucleated RBC % (auto) (0.0-0.2) /100WBC VBG pH (7.32-7.43) VBG pCO2 mmHg VBG pO2 mmHg VBG HCO3 (22-26) mmol/L VBG O2 Saturation % VBG Base Excess mmol/L Sodium 136 (135-145) mmol/L Potassium 4.4 (3.3-5.1) mmol/L Chloride 102 (96-108) mmol/L Carbon Dioxide 24 (22-29) mmol/L Anion Gap 14 (12-20) BUN 29 H (9-16) mg/dL Creatinine 1.48 H (0.5-1.4) mg/dL Estim Creat Clear Calc 110.1 Estimated GFR 57 POC Glucose (60-115) mg/dL Random Glucose 374 H* (60-115) mg/dL Estimat Average Glucose mg/dL Hemoglobin A1c % % Lactic Acid (0.5-2.0) mmol/L Lactic Acid F/U @ 2Hr (0.5-2.0) mmol/L Calcium 8.8 D (8.4-10.2) mg/dL Magnesium (1.6-2.6) mg/dL Total Bilirubin 0.3 (0.0-1.0) mg/dL AST 31 (5-37) U/L ALT 60 H (0-40) U/L Alkaline Phosphatase 81 D (39-117) U/L Total Protein 6.2 L D (6.5-8.0) g/dL Albumin 3.7 (3.5-5.0) g/dL Lipase (8-78) U/L Urine Color Urine Appearance Urine pH (5.0-8.0) Ur Specific [place] (1.005-1.025) Urine Protein (NEG-TRACE) MG/DL Urine Glucose (UA) (NEG) MG/DL Urine Ketones (NEG) MG/DL Urine Blood (NEG) Urine Nitrite (NEG) Ur Leukocyte Esterase (NEG) Urine RBC (0) /HPF Urine WBC (0-4) /HPF Ur Squamous Epith Cells /LPF Urine Bacteria /LPF Acetone, Qual (Negative) COVID-19 (DAVID) (Negative) COVID-19 Clin Com <ASHLEY Juarez - Last Filed: 08/18/21 17:53> Lab Results 08/18/21 08/18/21 08/18/21 Range/Units 16:28 16:30 16:37 WBC 11.5 H (4.8-10.8) X10*3/uL RBC 5.66 (4.60-5.80) X10*6/uL Hgb 17.9 (14.0-18.0) g/dl Hct 49.6 (42.0-52.0) % MCV 87.6 (80.0-98.0) fL MCH 31.6 (27.0-33.0) pg MCHC 36.1 H (31.0-36.0) g/dl RDW 11.9 (11.0-16.0) % Plt Count 320 (160-400) X10*3/uL MPV 10.4 (9.4-12.4) fL Immature Gran % (Auto) 0.3 (0.0-0.4) % Neut % (Auto) 67.9 (45-73) % Lymph % (Auto) 22.6 (20-40) % [place] % (Auto) 6.8 (2-11) % Eos % (Auto) 1.8 (0-4) % Baso % (Auto) 0.6 (0-2) % Lymph # (Auto) 2.6 (1.2-4.9) X10*3/uL [place] # (Auto) 0.8 (0.1-1.2) X10*3/uL Eos # (Auto) 0.2 (0.0-0.4) X10*3/uL Baso # (Auto) 0.1 (0.0-0.2) X10*3/uL Abs Immat Gran (auto) 0.04 H (0.00-0.03) X10*3/uL Absolute Neuts (auto) 7.8 (2.0-8.3) x10*3/uL Absolute Nucleated RBC 0.000 (0.0-0.012) X10*3/uL Nucleated RBC % (auto) 0.0 (0.0-0.2) /100WBC VBG pH (7.32-7.43) VBG pCO2 mmHg VBG pO2 mmHg VBG HCO3 (22-26) mmol/L VBG O2 Saturation % VBG Base Excess mmol/L Sodium (135-145) mmol/L Potassium (3.3-5.1) mmol/L Chloride (96-108) mmol/L Carbon Dioxide (22-29) mmol/L Anion Gap (12-20) BUN (9-16) mg/dL Creatinine (0.5-1.4) mg/dL Estim Creat Clear Calc Estimated GFR POC Glucose > 600 H* > 600 H* (60-115) mg/dL Random Glucose (60-115) mg/dL Estimat Average Glucose mg/dL Hemoglobin A1c % % Lactic Acid (0.5-2.0) mmol/L Lactic Acid F/U @ 2Hr (0.5-2.0) mmol/L Calcium (8.4-10.2) mg/dL Magnesium (1.6-2.6) mg/dL Total Bilirubin (0.0-1.0) mg/dL AST (5-37) U/L ALT (0-40) U/L Alkaline Phosphatase (39-117) U/L Total Protein (6.5-8.0) g/dL Albumin (3.5-5.0) g/dL Lipase (8-78) U/L Urine Color Urine Appearance Urine pH (5.0-8.0) Ur Specific [place] (1.005-1.025) Urine Protein (NEG-TRACE) MG/DL Urine Glucose (UA) (NEG) MG/DL Urine Ketones (NEG) MG/DL Urine Blood (NEG) Urine Nitrite (NEG) Ur Leukocyte Esterase (NEG) Urine RBC (0) /HPF Urine WBC (0-4) /HPF Ur Squamous Epith Cells /LPF Urine Bacteria /LPF Acetone, Qual (Negative) COVID-19 (DAVID) (Negative) COVID-19 Clin Com 08/18/21 08/18/21 08/18/21 Range/Units 16:37 17:57 17:57 WBC (4.8-10.8) X10*3/uL RBC (4.60-5.80) X10*6/uL Hgb (14.0-18.0) g/dl Hct (42.0-52.0) % MCV (80.0-98.0) fL MCH (27.0-33.0) pg MCHC (31.0-36.0) g/dl RDW (11.0-16.0) % Plt Count (160-400) X10*3/uL MPV (9.4-12.4) fL Immature Gran % (Auto) (0.0-0.4) % Neut % (Auto) (45-73) % Lymph % (Auto) (20-40) % [place] % (Auto) (2-11) % Eos % (Auto) (0-4) % Baso % (Auto) (0-2) % Lymph # (Auto) (1.2-4.9) X10*3/uL [place] # (Auto) (0.1-1.2) X10*3/uL Eos # (Auto) (0.0-0.4) X10*3/uL Baso # (Auto) (0.0-0.2) X10*3/uL Abs Immat Gran (auto) (0.00-0.03) X10*3/uL Absolute Neuts (auto) (2.0-8.3) x10*3/uL Absolute Nucleated RBC (0.0-0.012) X10*3/uL Nucleated RBC % (auto) (0.0-0.2) /100WBC VBG pH (7.32-7.43) VBG pCO2 mmHg VBG pO2 mmHg VBG HCO3 (22-26) mmol/L VBG O2 Saturation % VBG Base Excess mmol/L Sodium 131 L (135-145) mmol/L Potassium 5.1 (3.3-5.1) mmol/L Chloride 91 L (96-108) mmol/L Carbon Dioxide 31 H (22-29) mmol/L Anion Gap 14 (12-20) BUN 32 H (9-16) mg/dL Creatinine 2.22 H (0.5-1.4) mg/dL Estim Creat Clear Calc 73.4 Estimated GFR 35 POC Glucose (60-115) mg/dL Random Glucose 719 H* (60-115) mg/dL Estimat Average Glucose mg/dL Hemoglobin A1c % % Lactic Acid 2.3 H* (0.5-2.0) mmol/L Lactic Acid F/U @ 2Hr (0.5-2.0) mmol/L Calcium 10.5 H D (8.4-10.2) mg/dL Magnesium 2.2 (1.6-2.6) mg/dL Total Bilirubin 0.5 (0.0-1.0) mg/dL AST 36 (5-37) U/L ALT 72 H (0-40) U/L Alkaline Phosphatase 110 (39-117) U/L Total Protein 7.9 (6.5-8.0) g/dL Albumin 4.6 (3.5-5.0) g/dL Lipase 34 (8-78) U/L Urine Color Urine Appearance Urine pH (5.0-8.0) Ur Specific [place] (1.005-1.025) Urine Protein (NEG-TRACE) MG/DL Urine Glucose (UA) (NEG) MG/DL Urine Ketones (NEG) MG/DL Urine Blood (NEG) Urine Nitrite (NEG) Ur Leukocyte Esterase (NEG) Urine RBC (0) /HPF Urine WBC (0-4) /HPF Ur Squamous Epith Cells /LPF Urine Bacteria /LPF Acetone, Qual Negative (Negative) COVID-19 (DAVID) Negative (Negative) COVID-19 Clin Com See Note 08/18/21 08/18/21 08/18/21 Range/Units 17:57 17:57 17:58 WBC (4.8-10.8) X10*3/uL RBC (4.60-5.80) X10*6/uL Hgb (14.0-18.0) g/dl Hct (42.0-52.0) % MCV (80.0-98.0) fL MCH (27.0-33.0) pg MCHC (31.0-36.0) g/dl RDW (11.0-16.0) % Plt Count (160-400) X10*3/uL MPV (9.4-12.4) fL Immature Gran % (Auto) (0.0-0.4) % Neut % (Auto) (45-73) % Lymph % (Auto) (20-40) % [place] % (Auto) (2-11) % Eos % (Auto) (0-4) % Baso % (Auto) (0-2) % Lymph # (Auto) (1.2-4.9) X10*3/uL [place] # (Auto) (0.1-1.2) X10*3/uL Eos # (Auto) (0.0-0.4) X10*3/uL Baso # (Auto) (0.0-0.2) X10*3/uL Abs Immat Gran (auto) (0.00-0.03) X10*3/uL Absolute Neuts (auto) (2.0-8.3) x10*3/uL Absolute Nucleated RBC (0.0-0.012) X10*3/uL Nucleated RBC % (auto) (0.0-0.2) /100WBC VBG pH 7.42 (7.32-7.43) VBG pCO2 36 mmHg VBG pO2 91 mmHg VBG HCO3 24 (22-26) mmol/L VBG O2 Saturation 98.0 % VBG Base Excess 0.2 mmol/L Sodium (135-145) mmol/L Potassium (3.3-5.1) mmol/L Chloride (96-108) mmol/L Carbon Dioxide (22-29) mmol/L Anion Gap (12-20) BUN (9-16) mg/dL Creatinine (0.5-1.4) mg/dL Estim Creat Clear Calc Estimated GFR POC Glucose (60-115) mg/dL Random Glucose (60-115) mg/dL Estimat Average Glucose 272 mg/dL Hemoglobin A1c % 11.1 % Lactic Acid (0.5-2.0) mmol/L Lactic Acid F/U @ 2Hr (0.5-2.0) mmol/L Calcium (8.4-10.2) mg/dL Magnesium (1.6-2.6) mg/dL Total Bilirubin (0.0-1.0) mg/dL AST (5-37) U/L ALT (0-40) U/L Alkaline Phosphatase (39-117) U/L Total Protein (6.5-8.0) g/dL Albumin (3.5-5.0) g/dL Lipase (8-78) U/L Urine Color YELLOW Urine Appearance CLEAR Urine pH 6.0 (5.0-8.0) Ur Specific [place] 1.010 (1.005-1.025) Urine Protein NEG (NEG-TRACE) MG/DL Urine Glucose (UA) >=1000 H (NEG) MG/DL Urine Ketones NEG (NEG) MG/DL Urine Blood NEG (NEG) Urine Nitrite NEG (NEG) Ur Leukocyte Esterase NEG (NEG) Urine RBC 0-2 (0) /HPF Urine WBC 0-2 (0-4) /HPF Ur Squamous Epith Cells NONE /LPF Urine Bacteria NONE /LPF Acetone, Qual (Negative) COVID-19 (DAVID) (Negative) COVID-19 Clin Com 08/18/21 08/18/21 08/18/21 Range/Units 18:57 20:05 20:24 WBC (4.8-10.8) X10*3/uL RBC (4.60-5.80) X10*6/uL Hgb (14.0-18.0) g/dl Hct (42.0-52.0) % MCV (80.0-98.0) fL MCH (27.0-33.0) pg MCHC (31.0-36.0) g/dl RDW (11.0-16.0) % Plt Count (160-400) X10*3/uL MPV (9.4-12.4) fL Immature Gran % (Auto) (0.0-0.4) % Neut % (Auto) (45-73) % Lymph % (Auto) (20-40) % [place] % (Auto) (2-11) % Eos % (Auto) (0-4) % Baso % (Auto) (0-2) % Lymph # (Auto) (1.2-4.9) X10*3/uL [place] # (Auto) (0.1-1.2) X10*3/uL Eos # (Auto) (0.0-0.4) X10*3/uL Baso # (Auto) (0.0-0.2) X10*3/uL Abs Immat Gran (auto) (0.00-0.03) X10*3/uL Absolute Neuts (auto) (2.0-8.3) x10*3/uL Absolute Nucleated RBC (0.0-0.012) X10*3/uL Nucleated RBC % (auto) (0.0-0.2) /100WBC VBG pH (7.32-7.43) VBG pCO2 mmHg VBG pO2 mmHg VBG HCO3 (22-26) mmol/L VBG O2 Saturation % VBG Base Excess mmol/L Sodium (135-145) mmol/L Potassium (3.3-5.1) mmol/L Chloride (96-108) mmol/L Carbon Dioxide (22-29) mmol/L Anion Gap (12-20) BUN (9-16) mg/dL Creatinine (0.5-1.4) mg/dL Estim Creat Clear Calc Estimated GFR POC Glucose 423 H* 357 H* (60-115) mg/dL Random Glucose (60-115) mg/dL Estimat Average Glucose mg/dL Hemoglobin A1c % % Lactic Acid (0.5-2.0) mmol/L Lactic Acid F/U @ 2Hr 1.7 (0.5-2.0) mmol/L Calcium (8.4-10.2) mg/dL Magnesium (1.6-2.6) mg/dL Total Bilirubin (0.0-1.0) mg/dL AST (5-37) U/L ALT (0-40) U/L Alkaline Phosphatase (39-117) U/L Total Protein (6.5-8.0) g/dL Albumin (3.5-5.0) g/dL Lipase (8-78) U/L Urine Color Urine Appearance Urine pH (5.0-8.0) Ur Specific [place] (1.005-1.025) Urine Protein (NEG-TRACE) MG/DL Urine Glucose (UA) (NEG) MG/DL Urine Ketones (NEG) MG/DL Urine Blood (NEG) Urine Nitrite (NEG) Ur Leukocyte Esterase (NEG) Urine RBC (0) /HPF Urine WBC (0-4) /HPF Ur Squamous Epith Cells /LPF Urine Bacteria /LPF Acetone, Qual (Negative) COVID-19 (DAVID) (Negative) COVID-19 Clin Com 08/18/21 Range/Units 20:24 WBC (4.8-10.8) X10*3/uL RBC (4.60-5.80) X10*6/uL Hgb (14.0-18.0) g/dl Hct (42.0-52.0) % MCV (80.0-98.0) fL MCH (27.0-33.0) pg MCHC (31.0-36.0) g/dl RDW (11.0-16.0) % Plt Count (160-400) X10*3/uL MPV (9.4-12.4) fL Immature Gran % (Auto) (0.0-0.4) % Neut % (Auto) (45-73) % Lymph % (Auto) (20-40) % [place] % (Auto) (2-11) % Eos % (Auto) (0-4) % Baso % (Auto) (0-2) % Lymph # (Auto) (1.2-4.9) X10*3/uL [place] # (Auto) (0.1-1.2) X10*3/uL Eos # (Auto) (0.0-0.4) X10*3/uL Baso # (Auto) (0.0-0.2) X10*3/uL Abs Immat Gran (auto) (0.00-0.03) X10*3/uL Absolute Neuts (auto) (2.0-8.3) x10*3/uL Absolute Nucleated RBC (0.0-0.012) X10*3/uL Nucleated RBC % (auto) (0.0-0.2) /100WBC VBG pH (7.32-7.43) VBG pCO2 mmHg VBG pO2 mmHg VBG HCO3 (22-26) mmol/L VBG O2 Saturation % VBG Base Excess mmol/L Sodium 136 (135-145) mmol/L Potassium 4.4 (3.3-5.1) mmol/L Chloride 102 (96-108) mmol/L Carbon Dioxide 24 (22-29) mmol/L Anion Gap 14 (12-20) BUN 29 H (9-16) mg/dL Creatinine 1.48 H (0.5-1.4) mg/dL Estim Creat Clear Calc 110.1 Estimated GFR 57 POC Glucose (60-115) mg/dL Random Glucose 374 H* (60-115) mg/dL Estimat Average Glucose mg/dL Hemoglobin A1c % % Lactic Acid (0.5-2.0) mmol/L Lactic Acid F/U @ 2Hr (0.5-2.0) mmol/L Calcium 8.8 D (8.4-10.2) mg/dL Magnesium (1.6-2.6) mg/dL Total Bilirubin 0.3 (0.0-1.0) mg/dL AST 31 (5-37) U/L ALT 60 H (0-40) U/L Alkaline Phosphatase 81 D (39-117) U/L Total Protein 6.2 L D (6.5-8.0) g/dL Albumin 3.7 (3.5-5.0) g/dL Lipase (8-78) U/L Urine Color Urine Appearance Urine pH (5.0-8.0) Ur Specific [place] (1.005-1.025) Urine Protein (NEG-TRACE) MG/DL Urine Glucose (UA) (NEG) MG/DL Urine Ketones (NEG) MG/DL Urine Blood (NEG) Urine Nitrite (NEG) Ur Leukocyte Esterase (NEG) Urine RBC (0) /HPF Urine WBC (0-4) /HPF Ur Squamous Epith Cells /LPF Urine Bacteria /LPF Acetone, Qual (Negative) COVID-19 (DAVID) (Negative) COVID-19 Clin Com <ASHLEY Estrada - Last Filed: 08/19/21 02:12> ECG Data Attestation: I personally reviewed and interpreted this ECG as follows: <ASHLEY Juarez - Last Filed: 08/18/21 17:53> ECG interpretation date: 08/18/21 <ASHLEY Juarez - Last Filed: 08/18/21 17:53> ECG interpretation time: 17:20 <ASHLEY Juarez - Last Filed: 08/18/21 17:53> Interpretation: EKG sinus tachycardia at a rate of 111. Prolonged 4 6. Q-wave in lead 3. No STEMI. <ASHLEY Juarez - Last Filed: 08/18/21 17:53> Critical Care Time Critical Care Time Critical Care Time: Yes <ASHLEY Juarez Last Filed: 08/18/21 17:53> Total Critical Care Time: 35 <ASHLEY Juarez - Last Filed: 08/18/21 17:53> Attestation: I have personally provided critical care time exclusive of time spent on separately billable procedures. Time includes review of lab data, radiology results, discussion with consultants, and monitoring for potential decompensation. Intervention performed as documented. <ASHLEY Juarez - Last Filed: 08/18/21 17:53> Discharge Plan Discharge Clinical Impression: Diabetes mellitus, new onset, Acute hyperglycemia <ASHLEY Juarez Last Filed: 08/18/21 17:53> Patient Disposition: Admitted As Inpatient <ASHELY Juarez - Last Filed: 08/18/21 17:53>
[2021-08-18 17:19] VITALS: BP 119/75; PULSE 111; RESP 22; TEMP 37; O2SAT 95
[2021-08-18] MEDS: Insulin Regular, Human 100 UNIT/ML 3 ML VIAL 10 UNIT IVPUSH (17:38)
[2021-08-18] MEDS: 0.9 % Sodium Chloride 1,000 ML 999 ML IV ×3 (17:39→19:01)
--- NOTE | 2021-08-18 17:42 | PHA.MEDREC ---
Pharmacy Consult ? Medication Reconciliation Pharmacy has completed the medication reconciliation. Spoke to patient and spouse. Og Avila
[2021-08-18 18:00] LABS: Lipase 34 U/L (8-78); Magnesium 2.2 mg/dL (1.6-2.6)
[2021-08-18 18:04] LABS: Appearance Urine CLEAR; Color Urine YELLOW; Glucose Urine UA >=1000 MG/DL (NEG); Leukocyte Esterase Urine NEG (NEG); Nitrite Urine NEG (NEG); Urine Blood NEG (NEG); Urine Ketones NEG (NEG); Urine Protein NEG (NEG-TRACE)
[2021-08-18 18:05] LABS: VBG Base Excess 0.2 mmol/L; VBG HCO3 24 mmol/L (22-26); VBG pCO2 36 mmHg; VBG pH 7.42 (7.32-7.43); VBG pO2 91 mmHg
[2021-08-18 18:05] LABS: Venous Blood Gas Refer to POC result
[2021-08-18 18:20] LABS: Lactic Acid 2.3 mmol/L (0.5-2.0)
[2021-08-18 18:21] LABS: COVID-19 Test Negative (Negative)
[2021-08-18] MEDS: Lactated Ringers 1,000 ML 999 ML IV (18:21)
[2021-08-18 18:25] LABS: RBC Urine 0-2 /HPF (0); WBC Urine 0-2 /HPF (0-4)
[2021-08-18 18:54] VITALS: BP 123/77; PULSE 95; RESP 17; TEMP 36.8; O2SAT 98
[2021-08-18 19:03] LABS: Glucose, Whole Blood 423 mg/dL (60-115)
[2021-08-18 19:14] LABS: Estimated Average Glucose 272 mg/dL; Hemoglobin A1c % 11.1 %
[2021-08-18] MEDS: Insulin Regular, Human 100 UNIT/ML 3 ML VIAL 6 UNIT IVPUSH (19:16)
[2021-08-18] MEDS: Acetaminophen 325 MG TABLET 975 MG PO (19:19)
[2021-08-18 19:59] LABS: Reflex Lactate? Lactic Acid Added
[2021-08-18 20:09] LABS: Glucose, Whole Blood 357 mg/dL (60-115)
[2021-08-18 20:41] LABS: ~Lactic Acid-LAB USE ONLY 1.7 mmol/L (0.5-2.0)
[2021-08-18 20:51] LABS: Alanine Aminotransferase 60 U/L (0-40); Albumin Level 3.7 g/dL (3.5-5.0); Alkaline Phosphatase 81 U/L (39-117); Anion Gap 14 (12-20); Aspartate Amino Transferase 31 U/L (5-37); Bilirubin Total 0.3 mg/dL (0.0-1.0); Blood Urea Nitrogen 29 mg/dL (9-16); Calcium 8.8 mg/dL (8.4-10.2); Carbon Dioxide 24 mmol/L (22-29); Chloride 102 mmol/L (96-108); Creatinine Clr Calc Pharmacy 110.1; Estimated Glomerular Filt Rate 57; Glucose Random 374 mg/dL (60-115); Potassium 4.4 mmol/L (3.3-5.1); Sodium 136 mmol/L (135-145); Total Protein 6.2 g/dL (6.5-8.0)
[2021-08-18 21:25] VITALS: BP 140/77; PULSE 92; RESP 16; O2SAT 97
--- NOTE | 2021-08-18 22:30 | PM.IMHP ---
History of Present Illness Date of Service: 08/18/21 Chief Complaint: polyuria/polydipsia 26-year-old male with a past medical history of hypertension, obesity, hypertriglyceridemia, recent diagnosis of right foot gout/ cellulitis - on antibiotics and steroids; presented to the hospital today with a chief complaint of polyuria and polydipsia. Patient reports that over the past few days he has been having increased thirst and urination. Also complains of diarrhea. Denies any abdominal discomfort. Reports he had severe frequent urination. Denies any chest pain or palpitations. Denies any numbness tingling or focal weakness. patient mentioned that he checked fingerstick glucose at home which was noted to be high, went to the pharmacy who suggested him to go to the ER for further evaluation. Mentioned that he was recently diagnosed with gout/ cellulitis of his right foot - was given antibiotics and prednisone. Unclear of the dose regimen/ taper. Mentions he has significant family history of diabetes. Review of all other systems is negative except mentioned above ER course: ER team noted that patient's glucose levels are greater than 700s; given 16 units of regular insulin 4 L of normal saline; fingerstick glucose improved to 3 0s. Also noted to have ASHLYN. Admitted to the hospital for further management. [facility] Medical History Hypertension Hypertension Hypertriglyceridemia Impaired glucose tolerance Morbid obesity with BMI of 45.0-49.9, adult Psoriasis Tachycardia Family History Mother No problems noted. Father No problems noted. Surgical History No pertinent past surgical history Social History Housing: Apartment Alcohol intake: never Patient Tobacco Use Status: Never used Tobacco Second Hand Smoke Exposure: Yes Advance Directives: No Advance Directives Information Provided: No service: No Current occupational status: unemployed Meds Allergies Allergy/AdvReac Type Severity Reaction Status Date / Time latex [LATEX] Allergy Intermediate RASH Verified 08/18/21 16:25 Active Medications: Current Medications Acetaminophen (Acetaminophen 325 Mg Tablet) 650 mg PO Q6H PRN PRN Reason: Pain, Mild (Pain Scale 1-3) Dextrose (Dextrose 50 % 25 Gm/50 Ml Syringe) 25 gm IVPUSH Q15M PRN; Protocol PRN Reason: per Hypoglycemia Standing Ord. Glucose (Glucose Gel 15 Gm Gel..Gram.) 15 gm PO Q15M PRN; Protocol PRN Reason: per Hypoglycemia Standing Ord. Heparin Sodium (Porcine) (Heparin Sodium,Porcine 5,000 Unit/Ml Vial) 5,000 unit SUBCUT Q8H GEREMIAS Insulin Glargine (Insulin Glargine,Hum.Rec.Anlog 100 Unit/Ml 10 Ml Vial) 10 unit SUBCUT BEDTIME GEREMIAS Insulin Human Lispro (Insulin Lispro 100 Unit/Ml 3 Ml Vial) 0 unit SUBCUT QIDACHS GEREMIAS; Protocol Melatonin (Melatonin 3 Mg Tablet) 6 mg PO BEDTIME PRN PRN Reason: Insomnia Pharmacy Consult (Consult Rx Perform Med Rec) 1 each MISCELLANE ONCE PRN PRN Reason: Consult order Senna (Sennosides 8.6 Mg Tablet) 17.2 mg PO BEDTIME PRN PRN Reason: Constipation Sodium Chloride (0.9 % Sodium Chloride Flush 3 Ml Syringe) 3 ml IVFLUSH [facility] Home Medications Medication Instructions Recorded Confirmed Last Taken Type prednisone 20 mg tablet 3 tab PO DAILY 08/18/21 08/18/21 1 Day Ago History ~08/17/21 Physical Exam Vital Signs and Narrative: Vital Signs: Last Vital Signs Temp 98.2 F 08/18/21 18:54 Pulse 92 08/18/21 21:25 Resp 16 08/18/21 21:25 BP 140/77 H 08/18/21 21:25 Pulse Ox 97 08/18/21 21:25 BMI result Body Mass Index 45.8 Gen: Appears be in no acute distress . Obese HEENT: NCAT, Moist mucosa. Pulmonary: Vesicular breath sounds, fair air entry CVS: Normal S1-S2 Abdomen: BS+, Soft, Nontender Extremities: Warm well perfused Neuro: Alert and awake. Results Labs CBC and Chem 7: 08/19/21 05:43 08/19/21 05:43 Labs: Laboratory Results - last 24 hr 08/18/21 08/18/21 08/18/21 16:28 16:30 16:37 MCV 87.6 MCH 31.6 MCHC 36.1 H RDW 11.9 Plt Count 320 MPV 10.4 Immature Gran % (Auto) 0.3 Neut % (Auto) 67.9 Lymph % (Auto) 22.6 [place] % (Auto) 6.8 Eos % (Auto) 1.8 Baso % (Auto) 0.6 Lymph # (Auto) 2.6 [place] # (Auto) 0.8 Eos # (Auto) 0.2 Baso # (Auto) 0.1 Abs Immat Gran (auto) 0.04 H Absolute Neuts (auto) 7.8 Absolute Nucleated RBC 0.000 Nucleated RBC % (auto) 0.0 VBG pH VBG pCO2 VBG pO2 VBG HCO3 VBG O2 Saturation VBG Base Excess Anion Gap Estim Creat Clear Calc Estimated GFR POC Glucose > 600 H* > 600 H* Random Glucose Estimat Average Glucose Hemoglobin A1c % Lactic Acid Lactic Acid F/U @ 2Hr Calcium Magnesium Total Bilirubin AST ALT Alkaline Phosphatase Total Protein Albumin Lipase Urine Color Urine Appearance Urine pH Ur Specific [place] Urine Protein Urine Glucose (UA) Urine Ketones Urine Blood Urine Nitrite Ur Leukocyte Esterase Urine RBC Urine WBC Ur Squamous Epith Cells Urine Bacteria Acetone, Qual COVID-19 (DAVID) COVID-19 Clin Com 08/18/21 08/18/21 08/18/21 16:37 17:57 17:57 MCV MCH MCHC RDW Plt Count MPV Immature Gran % (Auto) Neut % (Auto) Lymph % (Auto) [place] % (Auto) Eos % (Auto) Baso % (Auto) Lymph # (Auto) [place] # (Auto) Eos # (Auto) Baso # (Auto) Abs Immat Gran (auto) Absolute Neuts (auto) Absolute Nucleated RBC Nucleated RBC % (auto) VBG pH VBG pCO2 VBG pO2 VBG HCO3 VBG O2 Saturation VBG Base Excess Anion Gap 14 Estim Creat Clear Calc 73.4 Estimated GFR 35 POC Glucose Random Glucose 719 H* Estimat Average Glucose Hemoglobin A1c % Lactic Acid 2.3 H* Lactic Acid F/U @ 2Hr Calcium 10.5 H D Magnesium 2.2 Total Bilirubin 0.5 AST 36 ALT 72 H Alkaline Phosphatase 110 Total Protein 7.9 Albumin 4.6 Lipase 34 Urine Color Urine Appearance Urine pH Ur Specific [place] Urine Protein Urine Glucose (UA) Urine Ketones Urine Blood Urine Nitrite Ur Leukocyte Esterase Urine RBC Urine WBC Ur Squamous Epith Cells Urine Bacteria Acetone, Qual Negative COVID-19 (DAVID) Negative COVID-19 Clin Com See Note 08/18/21 08/18/21 08/18/21 17:57 17:57 17:58 MCV MCH MCHC RDW Plt Count MPV Immature Gran % (Auto) Neut % (Auto) Lymph % (Auto) [place] % (Auto) Eos % (Auto) Baso % (Auto) Lymph # (Auto) [place] # (Auto) Eos # (Auto) Baso # (Auto) Abs Immat Gran (auto) Absolute Neuts (auto) Absolute Nucleated RBC Nucleated RBC % (auto) VBG pH 7.42 VBG pCO2 36 VBG pO2 91 VBG HCO3 24 VBG O2 Saturation 98.0 VBG Base Excess 0.2 Anion Gap Estim Creat Clear Calc Estimated GFR POC Glucose Random Glucose Estimat Average Glucose 272 Hemoglobin A1c % 11.1 Lactic Acid Lactic Acid F/U @ 2Hr Calcium Magnesium Total Bilirubin AST ALT Alkaline Phosphatase Total Protein Albumin Lipase Urine Color YELLOW Urine Appearance CLEAR Urine pH 6.0 Ur Specific [place] 1.010 Urine Protein NEG Urine Glucose (UA) >=1000 H Urine Ketones NEG Urine Blood NEG Urine Nitrite NEG Ur Leukocyte Esterase NEG Urine RBC 0-2 Urine WBC 0-2 Ur Squamous Epith Cells NONE Urine Bacteria NONE Acetone, Qual COVID-19 (DAVID) [employer] 08/18/21 08/18/21 08/18/21 18:57 20:05 20:24 MCV MCH MCHC RDW Plt Count MPV Immature Gran % (Auto) Neut % (Auto) Lymph % (Auto) [place] % (Auto) Eos % (Auto) Baso % (Auto) Lymph # (Auto) [place] # (Auto) Eos # (Auto) Baso # (Auto) Abs Immat Gran (auto) Absolute Neuts (auto) Absolute Nucleated RBC Nucleated RBC % (auto) VBG pH VBG pCO2 VBG pO2 VBG HCO3 VBG O2 Saturation VBG Base Excess Anion Gap Estim Creat Clear Calc Estimated GFR POC Glucose 423 H* 357 H* Random Glucose Estimat Average Glucose Hemoglobin A1c % Lactic Acid Lactic Acid F/U @ 2Hr 1.7 Calcium Magnesium Total Bilirubin AST ALT Alkaline Phosphatase Total Protein Albumin Lipase Urine Color Urine Appearance Urine pH Ur Specific [place] Urine Protein Urine Glucose (UA) Urine Ketones Urine Blood Urine Nitrite Ur Leukocyte Esterase Urine RBC Urine WBC Ur Squamous Epith Cells Urine Bacteria Acetone, Qual COVID-19 (DAVID) [employer]re3D 08/18/21 20:24 MCV MCH MCHC RDW Plt Count MPV Immature Gran % (Auto) Neut % (Auto) Lymph % (Auto) [place] % (Auto) Eos % (Auto) Baso % (Auto) Lymph # (Auto) [place] # (Auto) Eos # (Auto) Baso # (Auto) Abs Immat Gran (auto) Absolute Neuts (auto) Absolute Nucleated RBC Nucleated RBC % (auto) VBG pH VBG pCO2 VBG pO2 VBG HCO3 VBG O2 Saturation VBG Base Excess Anion Gap 14 Estim Creat Clear Calc 110.1 Estimated GFR 57 POC Glucose Random Glucose 374 H* Estimat Average Glucose Hemoglobin A1c % Lactic Acid Lactic Acid F/U @ 2Hr Calcium 8.8 D Magnesium Total Bilirubin 0.3 AST 31 ALT 60 H Alkaline Phosphatase 81 D Total Protein 6.2 L D Albumin 3.7 Lipase Urine Color Urine Appearance Urine pH Ur Specific [place] Urine Protein Urine Glucose (UA) Urine Ketones Urine Blood Urine Nitrite Ur Leukocyte Esterase Urine RBC Urine WBC Ur Squamous Epith Cells Urine Bacteria Acetone, Qual COVID-19 (DAVID) COVID-19 Clin Com Assessment and Plan (1) Diabetes mellitus, new onset: Status: Acute (2) ASHLYN (acute kidney injury): Status: Acute Plan 26-year-old male with a past medical history of hypertension, obesity, hypertriglyceridemia, recent diagnosis of right foot gout/ cellulitis - on antibiotics and steroids; presented to the hospital today with a chief complaint of polyuria and polydipsia. noted to have new onset diabetes. Admitted for following. New onset diabetes: Patient fingerstick glucose on presentation was and 700. Improved to 3 0s after 16 units of regular insulin IV push in 4 L of normal saline IV s/w Lantus 20 units plus insulin sliding scale Follow-up hemoglobin A1c Medicate on diet and lifestyle modifications Monitor fingerstick glucose Diabetic diet patient was recently on steroids for possible codes- possibly confounding to hyperglycemia as well. Recent gout/ cellulitis of the right foot: Patient on p.o. antibiotics and steroids. Patient unsure of his prednisone taper dose. Will defer to the day team to follow up with the PCP. History of hypertension: Hold home lisinopril / hydrochlorothiazide given ASHLYN. ASHLYN: Likely prerenal. improving with IV fluids. Avoid nephrotoxins. DVT prophylaxis: Subcu heparin Code status: Full code Quality Stroke Does the patient have a stroke diagnosis?: No VTE Prior VTE?: No VTE Risk Level:: Medical - moderate - high VTE Device Contraindication: Treatment Not Indicated VTE Drug Contraindication: N/A - Med Ordered
[2021-08-18] MEDS: Heparin Sodium,Porcine 5,000 UNIT/ML VIAL 5000 UNIT SUBCUT (23:07)
--- NOTE | 2021-08-18 23:14 | PC.NURSE ---
Pt medicated per Aug. Pt given a drink and sandwich. Reported to LUC MARTINEZ.
--- NOTE | 2021-08-18 23:27 | PC.NURSE ---
nurse to nurse report given to Kayla RN in ED overflow
[2021-08-18] MEDS: Melatonin 3 MG TABLET 6 MG PO (23:55)
[2021-08-18] MEDS: Acetaminophen 325 MG TABLET 650 MG PO (23:55)
[2021-08-18 23:58] VITALS: BP 113/60; PULSE 86; RESP 18; TEMP 36.2; O2SAT 99
[2021-08-19] VITALS (7 sets, daily range): BP systolic 116–144; BP diastolic 66–88; PULSE 75–99; RESP 15–22; TEMP 36.7–37.2; O2SAT 95–98
[2021-08-19 06:04] LABS: MANUAL DIFF FLAG NO
[2021-08-19 06:11] LABS: Basophils Percent Auto 0.4 % (0-2); Eosinophils Absolute Auto 0.3 X10*3/uL (0.0-0.4); Eosinophils Percent Auto 3.1 % (0-4); Hematocrit 45.3 % (42.0-52.0); Hemoglobin 15.9 g/dl (14.0-18.0); Imm Gran Abs Auto 0.06 X10*3/uL (0.00-0.03); Imm Gran Pct Auto 0.6 % (0.0-0.4); Lymphocytes Absolute Auto 3.6 X10*3/uL (1.2-4.9); Mean Corpuscular HGB Conc 35.1 g/dl (31.0-36.0); Mean Corpuscular Hemoglobin 31.5 pg (27.0-33.0); Mean Corpuscular Volume 89.7 fL (80.0-98.0); Mean Platelet Volume 10.4 fL (9.4-12.4); Monocytes Absolute Auto 0.8 X10*3/uL (0.1-1.2); Monocytes Percent Auto 8.2 % (2-11); Neutrophils Absolute Auto 4.7 x10*3/uL (2.0-8.3); Neutrophils Percent Auto 49.7 % (45-73); Platelet Count 269 X10*3/uL (160-400); Red Blood Count 5.05 X10*6/uL (4.60-5.80); Red Cell Distribution Width 12.1 % (11.0-16.0); White Blood Count 9.4 X10*3/uL (4.8-10.8)
[2021-08-19 06:30] LABS: Anion Gap 14 (12-20); Blood Urea Nitrogen 24 mg/dL (9-16); Calcium 9.5 mg/dL (8.4-10.2); Carbon Dioxide 26 mmol/L (22-29); Chloride 100 mmol/L (96-108); Creatinine Clr Calc Pharmacy 120.7; Estimated Glomerular Filt Rate > 60; Glucose Random 364 mg/dL (60-115); Potassium 4.5 mmol/L (3.3-5.1); Sodium 135 mmol/L (135-145)
[2021-08-19] MEDS: Heparin Sodium,Porcine 5,000 UNIT/ML VIAL 5000 UNIT SUBCUT ×3 (06:41→22:14)
[2021-08-19 06:56] LABS: Estimated Average Glucose 275 mg/dL; Hemoglobin A1c % 11.2 %
[2021-08-19 07:35] LABS: Glucose, Whole Blood 323 mg/dL (60-115)
[2021-08-19] MEDS: Insulin Lispro 100 UNIT/ML 3 ML VIAL SUBCUT ×6 (07:49→20:23)
[2021-08-19] MEDS: Acetaminophen 325 MG TABLET 650 MG PO ×2 (07:53→15:47)
--- NOTE | 2021-08-19 07:56 | PC.NURSE ---
pt is a/o x 3 no sob/abdulaziz noted skin pink warm dry speaks in full sentences. amb (i) gait steady to bathroom and btb. pt ate 80% of breakfast. pt is aware of plan of care.
[2021-08-19] MEDS: 0.9 % Sodium Chloride Flush 3 ML SYRINGE IVFLUSH ×2 (09:01→15:35)
[2021-08-19] MEDS: cephALEXin 500 MG CAPSULE PO ×4 (09:02→20:23)
[2021-08-19 11:14] LABS: Glucose, Whole Blood 307 mg/dL (60-115)
--- NOTE | 2021-08-19 13:14 | P.PNIM_ITS ---
Subjective Subjective Date of Service: 08/19/21 Interval History: f/u on new onset diabetes with severe hyperglycemia causing marked glucosruria and dehydration, ASHLYN, tachycardia. He is feeling much better..Blood sugars are still high Review of Systems no polyuria or polydypsia no fever or chills Physical Exam Vital Signs: Vital Signs: Last Vital Signs Temp 98.5 F 08/19/21 11:10 Pulse 80 08/19/21 11:10 Resp 15 08/19/21 11:10 BP 142/87 H 08/19/21 11:10 Pulse Ox 95 08/19/21 11:10 BMI result General: AO X 3, no acute distress Resp: CTA bilateral CVS: S1,S2,RRR GI: +BS, NT, no distention Skin: No rash, could not appreciate any redness on foot Neuro: motor grossly intact Psych: appropriate affect Const: Other: General: AO X 3, no acute distress Resp: CTA bilateral CVS: S1,S2,RRR GI: +BS, NT, no distention Skin: No rash Neuro: motor grossly intact Psych: appropriate affect Objective Data Active Medications Acetaminophen (Acetaminophen 325 Mg Tablet) 650 mg PO Q6H PRN PRN Reason: Pain, Mild (Pain Scale 1-3) Last Admin: 08/19/21 07:53 Dose: 650 mg Documented by: CHELSIE Cephalexin HCl (Cephalexin 500 Mg Capsule) 500 mg PO QID [facility] Last Admin: 08/19/21 13:09 Dose: 500 mg Documented by: CHELSIE Dextrose (Dextrose 50 % 25 Gm/50 Ml Syringe) 25 gm IVPUSH Q15M PRN; Protocol PRN Reason: per Hypoglycemia Standing Ord. Doxycycline Hyclate (Doxycycline Hyclate 100 Mg Tablet) 100 mg PO BID [facility] Last Admin: 08/19/21 09:05 Dose: 100 mg Documented by: CHELSIE Glucose (Glucose Gel 15 Gm Gel..Gram.) 15 gm PO Q15M PRN; Protocol PRN Reason: per Hypoglycemia Standing Ord. Heparin Sodium (Porcine) (Heparin Sodium,Porcine 5,000 Unit/Ml Vial) 5,000 unit SUBCUT Q8H [facility] Last Admin: 08/19/21 06:41 Dose: 5,000 unit Documented by: MIR Insulin Glargine (Insulin Glargine,Hum.Rec.Anlog 100 Unit/Ml 10 Ml Vial) 20 unit SUBCUT BEDTIME [facility] Insulin Human Lispro (Insulin Lispro 100 Unit/Ml 3 Ml Vial) 0 unit SUBCUT QIDACHS [facility]; Protocol Last Admin: 08/19/21 13:09 Dose: 8 unit Documented by: CHELSIE Melatonin (Melatonin 3 Mg Tablet) 6 mg PO BEDTIME PRN PRN Reason: Insomnia Last Admin: 08/18/21 23:55 Dose: 6 mg Documented by: MIR Pharmacy Consult (Consult Rx Perform Med Rec) 1 each MISCELLANE ONCE PRN PRN Reason: Consult order Prednisone (Prednisone 20 Mg Tablet) 60 mg PO DAILY [facility] Last Admin: 08/19/21 09:48 Dose: Not Given Documented by: CHELSIE Non-Admin Reason: per Senna (Sennosides 8.6 Mg Tablet) 17.2 mg PO BEDTIME PRN PRN Reason: Constipation Sodium Chloride (0.9 % Sodium Chloride Flush 3 Ml Syringe) 3 ml IVFLUSH QSHIFT [facility] Last Admin: 08/19/21 09:01 Dose: 3 ml Documented by: CHELSIE Labs CBC & Chem 7: 08/19/21 05:43 08/19/21 05:43 Labs: Laboratory Results - last 24 hr 08/18/21 08/18/21 08/18/21 16:28 16:30 16:37 WBC 11.5 H MCV 87.6 MCH 31.6 MCHC 36.1 H RDW 11.9 Plt Count 320 MPV 10.4 Immature Gran % (Auto) 0.3 Neut % (Auto) 67.9 Lymph % (Auto) 22.6 [place] % (Auto) 6.8 Eos % (Auto) 1.8 Baso % (Auto) 0.6 Lymph # (Auto) 2.6 [place] # (Auto) 0.8 Eos # (Auto) 0.2 Baso # (Auto) 0.1 Abs Immat Gran (auto) 0.04 H Absolute Neuts (auto) 7.8 Absolute Nucleated RBC 0.000 Nucleated RBC % (auto) 0.0 VBG pH VBG pCO2 VBG pO2 VBG HCO3 VBG O2 Saturation VBG Base Excess Anion Gap Estim Creat Clear Calc Estimated GFR POC Glucose > 600 H* > 600 H* Random Glucose Estimat Average Glucose Hemoglobin A1c % Lactic Acid Lactic Acid F/U @ 2Hr Calcium Magnesium Total Bilirubin AST ALT Alkaline Phosphatase Total Protein Albumin Lipase Urine Color Urine Appearance Urine pH Ur Specific [place] Urine Protein Urine Glucose (UA) Urine Ketones Urine Blood Urine Nitrite Ur Leukocyte Esterase Urine RBC Urine WBC Ur Squamous Epith Cells Urine Bacteria Acetone, Qual COVID-19 (DAVID) COVID-19 Clin Com 08/18/21 08/18/21 08/18/21 16:37 17:57 17:57 WBC MCV MCH MCHC RDW Plt Count MPV Immature Gran % (Auto) Neut % (Auto) Lymph % (Auto) [place] % (Auto) Eos % (Auto) Baso % (Auto) Lymph # (Auto) [place] # (Auto) Eos # (Auto) Baso # (Auto) Abs Immat Gran (auto) Absolute Neuts (auto) Absolute Nucleated RBC Nucleated RBC % (auto) VBG pH VBG pCO2 VBG pO2 VBG HCO3 VBG O2 Saturation VBG Base Excess Anion Gap 14 Estim Creat Clear Calc 73.4 Estimated GFR 35 POC Glucose Random Glucose 719 H* Estimat Average Glucose Hemoglobin A1c % Lactic Acid 2.3 H* Lactic Acid F/U @ 2Hr Calcium 10.5 H D Magnesium 2.2 Total Bilirubin 0.5 AST 36 ALT 72 H Alkaline Phosphatase 110 Total Protein 7.9 Albumin 4.6 Lipase 34 Urine Color Urine Appearance Urine pH Ur Specific [place] Urine Protein Urine Glucose (UA) Urine Ketones Urine Blood Urine Nitrite Ur Leukocyte Esterase Urine RBC Urine WBC Ur Squamous Epith Cells Urine Bacteria Acetone, Qual Negative COVID-19 (DAVID) Negative COVID-19 Clin Com See Note 08/18/21 08/18/21 08/18/21 17:57 17:57 17:58 WBC MCV MCH MCHC RDW Plt Count MPV Immature Gran % (Auto) Neut % (Auto) Lymph % (Auto) [place] % (Auto) Eos % (Auto) Baso % (Auto) Lymph # (Auto) [place] # (Auto) Eos # (Auto) Baso # (Auto) Abs Immat Gran (auto) Absolute Neuts (auto) Absolute Nucleated RBC Nucleated RBC % (auto) VBG pH 7.42 VBG pCO2 36 VBG pO2 91 VBG HCO3 24 VBG O2 Saturation 98.0 VBG Base Excess 0.2 Anion Gap Estim Creat Clear Calc Estimated GFR POC Glucose Random Glucose Estimat Average Glucose 272 Hemoglobin A1c % 11.1 Lactic Acid Lactic Acid F/U @ 2Hr Calcium Magnesium Total Bilirubin AST ALT Alkaline Phosphatase Total Protein Albumin Lipase Urine Color YELLOW Urine Appearance CLEAR Urine pH 6.0 Ur Specific [place] 1.010 Urine Protein NEG Urine Glucose (UA) >=1000 H Urine Ketones NEG Urine Blood NEG Urine Nitrite NEG Ur Leukocyte Esterase NEG Urine RBC 0-2 Urine WBC 0-2 Ur Squamous Epith Cells NONE Urine Bacteria NONE Acetone, Qual COVID-19 (DAVID) COVID-19 Clin Com 08/18/21 08/18/21 08/18/21 18:57 20:05 20:24 WBC MCV MCH MCHC RDW Plt Count MPV Immature Gran % (Auto) Neut % (Auto) Lymph % (Auto) [place] % (Auto) Eos % (Auto) Baso % (Auto) Lymph # (Auto) [place] # (Auto) Eos # (Auto) Baso # (Auto) Abs Immat Gran (auto) Absolute Neuts (auto) Absolute Nucleated RBC Nucleated RBC % (auto) VBG pH VBG pCO2 VBG pO2 VBG HCO3 VBG O2 Saturation VBG Base Excess Anion Gap Estim Creat Clear Calc Estimated GFR POC Glucose 423 H* 357 H* Random Glucose Estimat Average Glucose Hemoglobin A1c % Lactic Acid Lactic Acid F/U @ 2Hr 1.7 Calcium Magnesium Total Bilirubin AST ALT Alkaline Phosphatase Total Protein Albumin Lipase Urine Color Urine Appearance Urine pH Ur Specific [place] Urine Protein Urine Glucose (UA) Urine Ketones Urine Blood Urine Nitrite Ur Leukocyte Esterase Urine RBC Urine WBC Ur Squamous Epith Cells Urine Bacteria Acetone, Qual COVID-19 (DAVID) COVID-19 Clin Com 08/18/21 08/19/21 08/19/21 20:24 05:43 05:43 WBC 9.4 MCV 89.7 MCH 31.5 MCHC 35.1 RDW 12.1 Plt Count 269 MPV 10.4 Immature Gran % (Auto) 0.6 H Neut % (Auto) 49.7 Lymph % (Auto) 38.0 [place] % (Auto) 8.2 Eos % (Auto) 3.1 Baso % (Auto) 0.4 Lymph # (Auto) 3.6 [place] # (Auto) 0.8 Eos # (Auto) 0.3 Baso # (Auto) 0.0 Abs Immat Gran (auto) 0.06 H Absolute Neuts (auto) 4.7 Absolute Nucleated RBC 0.000 Nucleated RBC % (auto) 0.0 VBG pH VBG pCO2 VBG pO2 VBG HCO3 VBG O2 Saturation VBG Base Excess Anion Gap 14 14 Estim Creat Clear Calc 110.1 120.7 Estimated GFR 57 > 60 POC Glucose Random Glucose 374 H* 364 H* Estimat Average Glucose Hemoglobin A1c % Lactic Acid Lactic Acid F/U @ 2Hr Calcium 8.8 D 9.5 D Magnesium Total Bilirubin 0.3 AST 31 ALT 60 H Alkaline Phosphatase 81 D Total Protein 6.2 L D Albumin 3.7 Lipase Urine Color Urine Appearance Urine pH Ur Specific [place] Urine Protein Urine Glucose (UA) Urine Ketones Urine Blood Urine Nitrite Ur Leukocyte Esterase Urine RBC Urine WBC Ur Squamous Epith Cells Urine Bacteria Acetone, Qual COVID-19 (DAVID) COVID-19 [facility] 08/19/21 08/19/21 08/19/21 05:43 07:24 11:08 WBC MCV MCH MCHC RDW Plt Count MPV Immature Gran % (Auto) Neut % (Auto) Lymph % (Auto) [place] % (Auto) Eos % (Auto) Baso % (Auto) Lymph # (Auto) [place] # (Auto) Eos # (Auto) Baso # (Auto) Abs Immat Gran (auto) Absolute Neuts (auto) Absolute Nucleated RBC Nucleated RBC % (auto) VBG pH VBG pCO2 VBG pO2 VBG HCO3 VBG O2 Saturation VBG Base Excess Anion Gap Estim Creat Clear Calc Estimated GFR POC Glucose 323 H 307 H Random Glucose Estimat Average Glucose 275 Hemoglobin A1c % 11.2 Lactic Acid Lactic Acid F/U @ 2Hr Calcium Magnesium Total Bilirubin AST ALT Alkaline Phosphatase Total Protein Albumin Lipase Urine Color Urine Appearance Urine pH Ur Specific [place] Urine Protein Urine Glucose (UA) Urine Ketones Urine Blood Urine Nitrite Ur Leukocyte Esterase Urine RBC Urine WBC Ur Squamous Epith Cells Urine Bacteria Acetone, Qual COVID-19 (DAVID) COVID-19 [facility] Assessment and Plan (1) ASHLYN (acute kidney injury): Status: Acute (2) Diabetes mellitus, new onset: Status: Acute Plan 26-year-old male with a past medical history of hypertension, obesity, hypertriglyceridemia, recent diagnosis of right foot gout/ cellulitis - on antibiotics and steroids; presented to the hospital today with a chief complaint of polyuria and polydipsia. ? noted to have new onset diabetes.? Admitted for [facility].? New onset diabetes with marked hyperglycemia, glucose over > 700 but no DKA, A1C of 11, as result he suffered marked glucosuria leading high volume of water loss and dehyration leading to prenal ASHLYN and Tachycardia that has improved with aggresive fluid hydration. The renal failure and tachycardia as stated above is NOT due to Sepsis, likewise, mild increase lactic acid not due to sepsis rather from elevated LFTS and decrease renal clearance and not sepsis. --Continue Insulin, diabetes education, dietary education, will benefit from outpatient endocrinology eval Question of recent gout and cellulitis--it is possible, there was no uric acid done, no increase in WBC.. I don't think he needs further antibiotics.. No sepsis or severe sepsis, renla failure d/t dehydration from glucosuria, tachycardia due to dehydration as well, and lactic acidosis d/t renal failure and elevated WBC History of hypertension: hold Lisinopril and HCTZ in light ASHLYN: Likely prerenal. ? improving with IV fluids.? Avoid nephrotoxins.? DVT prophylaxis:? Subcu heparin Code status:? Full code Quality Stroke Does the patient have a stroke diagnosis?: No VTE Prior VTE?: No VTE Risk Level:: Medical - moderate - high VTE Device Contraindication: Treatment Not Indicated VTE Drug Contraindication: N/A - Med Ordered
--- NOTE | 2021-08-19 14:22 | PC.NURSE ---
rn to rn given to kyler, pt/s.o aware of plan of care for transfer to room 362.
[2021-08-19 14:46] LABS: Glucose, Whole Blood 378 mg/dL (60-115)
--- NOTE | 2021-08-19 16:14 | PC.NURSE ---
P patient c/o pressure headache,blurry vision I Dr. Ruiz notified,Tylenol administered,neuro signs WNL E will monitor
[2021-08-19 16:38] LABS: Glucose, Whole Blood 313 mg/dL (60-115)
[2021-08-19 19:58] LABS: Glucose, Whole Blood 269 mg/dL (60-115)
[2021-08-19] MEDS: Insulin Glargine,Hum.rec.anlog 100 UNIT/ML 10 ML VIAL 20 UNIT SUBCUT (20:22)
[2021-08-20] MEDS: 0.9 % Sodium Chloride Flush 3 ML SYRINGE IVFLUSH ×2 (00:07→08:28)
[2021-08-20 03:43] VITALS: BP 127/74; PULSE 84; RESP 17; TEMP 37.6; O2SAT 96
[2021-08-20] MEDS: Heparin Sodium,Porcine 5,000 UNIT/ML VIAL 5000 UNIT SUBCUT (06:46)
[2021-08-20 07:24] LABS: Glucose, Whole Blood 253 mg/dL (60-115)
[2021-08-20 07:43] VITALS: BP 143/76; PULSE 80; RESP 16; TEMP 37.1; O2SAT 95
[2021-08-20] MEDS: cephALEXin 500 MG CAPSULE PO ×2 (08:27→12:18)
[2021-08-20] MEDS: predniSONE 20 MG TABLET 60 MG PO (08:27)
[2021-08-20] MEDS: Insulin Lispro 100 UNIT/ML 3 ML VIAL SUBCUT ×4 (08:27→12:19)
--- NOTE | 2021-08-20 09:03 | PM.DS ---
DS: Providers Provider Date of Service: 08/20/21 Date of admission: 08/18/21 22:26 Primary care physician: Kimberley De Jesus MD DS: Diagnosis Discharge Diagnosis (1) BENY (acute kidney injury): Status: Resolved (2) Diabetes mellitus, new onset: Status: Acute DS: Summary Hospital Course Hospital Course: Admission HPI: Chief Complaint: polyuria/polydipsia 26-year-old male with a past medical history of hypertension, obesity, hypertriglyceridemia, recent diagnosis of right foot gout/ cellulitis - on antibiotics and steroids; presented to the hospital today with a chief complaint of polyuria and polydipsia.? Patient reports that over the past few days he has been having increased thirst and urination.? Also complains of diarrhea.? Denies any abdominal discomfort.? Reports he had? severe frequent urination.? Denies any chest pain or palpitations.? Denies any numbness tingling or focal weakness. ?patient mentioned that he checked fingerstick glucose at home which was noted to be high, went to the pharmacy who suggested him to go to the ER for further evaluation. ? Mentioned that he was recently diagnosed with gout/ cellulitis of his right foot - was given antibiotics and prednisone.? Unclear of the dose regimen/ taper.? Mentions he has significant family history of diabetes.? Review of all other systems is negative except mentioned above ER course: ? ER team noted that patient's glucose levels are greater than 700s; given 16 units of regular insulin 4 L of normal saline; fingerstick glucose improved to 3 0s.? Also noted to have BENY.? Admitted to the hospital for further management. Hospital course: 26 male obese, BMI 45 who presented with polyuria, polydipsia, blury vision and glucose level > 600 but without metabolic acidodis, Hgb A1C was measure to be 11. He has previously not been tested for diabetes. His last routine labs from September 2020 did not include Hemoglobin A1C or even random glucose. He has been seen in the ED on 08/08 for plantar fascitis and 08/13 with gout and cellulitis and prescribed Prednisone 60 mg daily, and on those occasions, no labs work done. On this presentation was noted to be in BENY with creatinine of 2.22 previously a year ago 1.16. Hgb A1C indicates that he has longstading diabetes and likely type 2 given body habitus and no acidosis.. He was admitted for new onset of diabetes with marked hyperglycemia but no acidosis and BENY. Diabetes was treated with IVF, insulin (lantus presently 20 units at bedtime and slidding scale insuline).. His sugar levels have been worsened by high dose of prednisone.. He will be discharge with Lantus 20 untis at bed, sliding scale insulin, to follow up with PCP and should have outpatient endocrinology evaluation. Weight loss is highly encouraged and he is aware of its health benefits and weight loss options available to him. He should carefully his diet and will also benefit from outpatient dietary consult Beny was due to pre-renal Azotemia from volume depletion from glucosuria and and agravated by Lisinopril and HCTZ, this was treated with IVF and oral fluid with rapid return of Cr within normal range. BENY was NOT due to sepsis. ? Question of Cellulitis and gout which have previously been treated with antibiotics and steroid.. On this occasion there was no finding to suggest Cellulitis or gout and the fact that no labs were done including CBC or uric makes it difficulty to establish a diagnosis--There was no cellulitis on this presentation and if there ever was, he has received enough antibiotics with keflex and Doxy and needs no additional antibiotics and no indication for steroid at this time as it is also making diabetes wors. He was not septic on this occassion, tachycardia and renal failure were due to marked dehydration, lactic acidosis was also due to renal failure and elevated LFTS and not sepsis Time Spent with Patient Time attestation: Total time spent providing and/or coordinating discharge services: Discharge coordination time: Greater than 30 minutes Quality: Stroke Does the patient have a stroke diagnosis?: No Physical Exam Vital Signs: Vital Signs: Last Vital Signs Temp 98.8 F 08/20/21 07:43 Pulse 80 08/20/21 07:43 Resp 16 08/20/21 07:43 BP 143/76 H 08/20/21 07:43 Pulse Ox 95 08/20/21 07:43 BMI result Body Mass Index 45.8 Const: Other: General: AO X 3, no acute distress Resp: CTA bilateral CVS: S1,S2,RRR GI: +BS, NT, no distention Skin: No rash Neuro: motor grossly intact Psych: appropriate affect DS: Data Data Completed and Pending Labs on day of discharge: Laboratory Results - last 24 hr 08/19/21 08/19/21 08/19/21 11:08 14:41 16:33 POC Glucose 307 H 378 H* 313 H 08/19/21 08/20/21 19:54 07:07 POC Glucose 269 H 253 H Discharge Plan Discharge Anticipated Discharge Date/Time: 08/20/21 08:47 Patient Disposition: Home, Self-Care Discharge Diagnosis: New onset of diabetes, acute kidney injury Referrals: Kimberley Zapien MD [Primary Care Provider] - 1 Week Discharge Medications: New (DME) FreeStyle Lite Strips Strip Qty: 100 0RF Rx Instructions: Test four times a day or as directed. (DME) blood-glucose meter [FreeStyle Lite Meter] Kit Qty: 1 0RF Rx Instructions: As Directed times a day alcohol swabs Pads, Medicated 1 pad TOPICAL QIDACHS Qty: 100 0RF Rx Instructions: Use four times a day or as directed. insulin lispro [Humalog KwikPen Insulin] 100 unit/mL Insulin Pen 0 sliding scale dose SUBCUT QIDACHS Qty: 15 0RF Rx Instructions: Blood Sugar: <150 - 0 units 151-200 - 2 units 201-250 - 4 units 251-300 - 6 units 301-350 - 8 units >350 - 10 units Lantus Solostar U-100 Insulin 100 unit/mL (3 mL) Insulin Pen 20 unit SUBCUT DAILY MDD 30 Qty: 15 0RF (DME) pen needle, diabetic 32 gauge x 1/4 Needle Qty: 100 0RF Rx Instructions: Use four times a day or as directed. (DME) lancets [FreeStyle Lancets] 28 gauge Misc Qty: 100 0RF Rx Instructions: Test four times a day or as directed. Continued lisinopril-hydrochlorothiazide 20-12.5 mg tablet 1 tab PO DAILY Qty: 30 6RF oxycodone 5 mg tablet 5 mg PO Q6H PRN (Reason: Pain (Scale Score 4-6)) Qty: 20 0RF Discontinued cephalexin 500 mg capsule 500 mg PO QID 10 Days Qty: 40 0RF doxycycline hyclate 100 mg tablet 100 mg PO BID Qty: 20 0RF prednisone 20 mg tablet 3 tab PO DAILY 0RF Discharge Orders: Discharge Order (Routine); Ordered 08/20/21 Ordered By: Raghu Ying Diet: advance to usual diet Activity on Discharge: As tolerated Stand Alone Forms: Patient Portal Discharge page, Work/School Release Care Plan Goals: Control of diabetes and its complications. Health Concerns: New onset of diabetes, obesity, high blood pressure, renal failure. Plan of Treatment: Take insulin as directed, checking sugars before meals and at bedtime Follow-up with her primary care doctor within a week as for referral to an aircraft engine technician Check your sugars before meals and at bedtime and records the number to give to your doctor If your sugar level is less than 70 (low sugar) you migh have symptosm of gitery, palpitations, sweating, confusion, anxiety and other--Drink orange juice or other Juice and recheck sugar level in 15 to 30 minutes and if sugar level remains low drink more juice and call 911 if your sugar level stays up of 350 after taking your usual insulin, call your Doctor. Try exercise and watch your Diet to loose weight Assessment: As above Discharge Date/Time: 08/20/21 13:55
[2021-08-20 09:30] LABS: Anion Gap 11 (12-20); Blood Urea Nitrogen 18 mg/dL (9-16); Calcium 9.3 mg/dL (8.4-10.2); Carbon Dioxide 29 mmol/L (22-29); Chloride 99 mmol/L (96-108); Creatinine Clr Calc Pharmacy 119.8; Estimated Glomerular Filt Rate > 60; Glucose Random 400 mg/dL (60-115); Potassium 4.7 mmol/L (3.3-5.1); Sodium 134 mmol/L (135-145); Uric Acid 10.2 mg/dL (3.4-7.0)
--- NOTE | 2021-08-20 11:21 | MHC.CM.PN ---
PATIENT LIVES WITH HIS SIGNIFICANT OTHER/HCP (COPY REQUESTED) TSEPHEN. 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 PATIENT IS FULLY INDEPENDENT. HE DOES HAVE CRUTCHES AND RECENTLY DISCOVERED THAT HE HAS DM II. HE AND STEPHEN ARE ASKING FOR SOME ASSISTANCE WITH DIABETIC TEACHING FOR MANAGEMENT AND MEAL PREPS. STEPHEN ASKS THAT CALLS BE PLACED TO HER AT [phone], SHE SPEAKS EMIRATI AND DOES ALL OF THE COOKING AND PURCHASING OF FOOD FOR THE HOME. PATIENT HAS HAD 2 PFIZER COVID-19 VACCINATIONS BUT IS UNABLE TO RECALL THE DATES. HE IS ALSO HOPING TO RETURN HOME TODAY
[2021-08-20 11:30] LABS: Glucose, Whole Blood 354 mg/dL (60-115)
[2021-08-20 12:00] VITALS: BP 113/59; PULSE 83; RESP 16; TEMP 36.1; O2SAT 95
== END 2021-08-20 13:55 | disposition home or self-care (01) | DRG 420 ==
LOC: HO.ED 17:44 → HO.EDOVER 22:34 → HO.S3 08-19 12:52
PROVIDERS: Physician Assistant; Admitting Provider Hospitalist; Emergency Provider Emergency Medicine Emergency Medical Services; PCP Internal Medicine; Visit Provider Internal Medicine
DX: E11.65 Type 2 diabetes mellitus with hyperglycemia (principal); N17.9 Acute kidney failure, unspecified; L03.115 Cellulitis of right lower limb; M10.9 Gout, unspecified; E86.0 Dehydration; Z20.822 Contact with and (suspected) exposure to COVID-19; Z79.4 Long term (current) use of insulin; Z91.040 Latex allergy status; Z79.899 Other long term (current) drug therapy
CPT/HCPCS: 36415; 80048; 80053; 81001; 82009; 82803; 82947; 83036; 83605; 83690; 83735; 84550; 85025; 87635; 93005; 96361; 96374; 96376; 99218; 99285; 99291

== ENCOUNTER 2021-09-13 15:52 | Outpatient (REF) | payer OTHER, SELFPAY ==
[2021-09-13 16:10] LABS: MANUAL DIFF FLAG NO
[2021-09-13 16:28] LABS: Basophils Percent Auto 0.2 % (0-2); Eosinophils Absolute Auto 0.2 X10*3/uL (0.0-0.4); Eosinophils Percent Auto 3.5 % (0-4); Hematocrit 47.6 % (42.0-52.0); Hemoglobin 16.7 g/dl (14.0-18.0); Imm Gran Abs Auto 0.02 X10*3/uL (0.00-0.03); Imm Gran Pct Auto 0.4 % (0.0-0.4); Mean Corpuscular HGB Conc 35.1 g/dl (31.0-36.0); Mean Corpuscular Hemoglobin 31.5 pg (27.0-33.0); Mean Corpuscular Volume 89.6 fL (80.0-98.0); Mean Platelet Volume 9.6 fL (9.4-12.4); Monocytes Absolute Auto 0.5 X10*3/uL (0.1-1.2); Monocytes Percent Auto 9.7 % (2-11); Neutrophils Absolute Auto 2.5 x10*3/uL (2.0-8.3); Neutrophils Percent Auto 48.2 % (45-73); Platelet Count 271 X10*3/uL (160-400); Red Blood Count 5.31 X10*6/uL (4.60-5.80); Red Cell Distribution Width 12.5 % (11.0-16.0); White Blood Count 5.2 X10*3/uL (4.8-10.8)
[2021-09-13 16:51] LABS: Alanine Aminotransferase 92 U/L (0-40); Albumin Level 4.2 g/dL (3.5-5.0); Alkaline Phosphatase 60 U/L (39-117); Anion Gap 10 (12-20); Aspartate Amino Transferase 41 U/L (5-37); Bilirubin Total 0.6 mg/dL (0.0-1.0); Blood Urea Nitrogen 16 mg/dL (9-16); Calcium 9.7 mg/dL (8.4-10.2); Carbon Dioxide 30 mmol/L (22-29); Chloride 107 mmol/L (96-108); Cholesterol 165 mg/dL; Estimated Glomerular Filt Rate > 60; Glucose Random 99 mg/dL (60-115); HDL Cholesterol 26 mg/dL; LDL Cholesterol Calculated 86 mg/dl; Potassium 4.4 mmol/L (3.3-5.1); Sodium 143 mmol/L (135-145); Total Protein 6.5 g/dL (6.5-8.0); Triglycerides 268 mg/dL
[2021-09-13 17:56] LABS: Folate 13.5 ng/mL (> or = 4.0); Vitamin B12 353 pg/mL (200-900)
[2021-09-13 18:45] LABS: Creatinine Urine 186.47 mg/dL; Microalbum/Creatinine Ratio Ur 2.6 ug/mg cr
[2021-09-14 06:30] LABS: Estimated Average Glucose 232 mg/dL; Hemoglobin A1c % 9.7 %
[2021-09-18 13:41] LABS: Vitamin D 25-OH, D2 <4 ng/mL; Vitamin D 25-OH, D3 12 ng/mL; Vitamin D 25-OH, Total 12 ng/mL (30-100)
== END 2021-09-13 15:53 | disposition home or self-care (01) ==
LOC: HO.LAB 15:52
PROVIDERS: PCP Internal Medicine; Visit Provider Nurse Practitioner Acute Care
DX: E11.9 Type 2 diabetes mellitus without complications (principal); N17.9 Acute kidney failure, unspecified
CPT/HCPCS: 36415; 80053; 80061; 82043; 82306; 82607; 82746; 83036; 84443; 85025

== ENCOUNTER → 2021-09-14 13:03 | Outpatient (BNVA) | payer OTHER, SELFPAY | PROVIDERS: PCP Internal Medicine; Visit Provider Registered Nurse Diabetes Educator | DX: E11.9 Type 2 diabetes mellitus without complications (principal); Z71.3 Dietary counseling and surveillance | CPT/HCPCS: 99211 ==

== ENCOUNTER 2021-09-20 14:26 | Outpatient (REF) | payer OTHER, SELFPAY ==
[2021-09-20 15:09] LABS: Estimated Average Glucose 214 mg/dL; Hemoglobin A1c % 9.1 %
[2021-09-20 15:55] LABS: Vitamin B12 354 pg/mL (200-900)
[2021-09-20 16:30] LABS: Creatinine Urine 105.67 mg/dL; Microalbum/Creatinine Ratio Ur 5.6 ug/mg cr
[2021-09-25 13:42] LABS: Vitamin D 25-OH, D2 <4 ng/mL; Vitamin D 25-OH, D3 11 ng/mL; Vitamin D 25-OH, Total 11 ng/mL (30-100)
[2021-09-25 15:27] LABS: Glutamic acid decarboxylase Ab <5 IU/mL (<5)
[2021-09-29 19:51] LABS: Insulin Auto Antibody <0.4 U/mL (<0.4)
== END 2021-09-20 14:27 | disposition home or self-care (01) ==
LOC: HO.LAB 14:26
PROVIDERS: Nurse Practitioner Acute Care; PCP Internal Medicine; Visit Provider Internal Medicine
DX: E11.9 Type 2 diabetes mellitus without complications (principal)
CPT/HCPCS: 36415; 82043; 82306; 82607; 82746; 83036; 86337; 86341

== ENCOUNTER → 2021-11-17 12:59 | Outpatient (BNVA) | payer OTHER, SELFPAY | PROVIDERS: PCP Internal Medicine; Visit Provider Internal Medicine Endocrinology, Diabetes & Metabolism | DX: E11.9 Type 2 diabetes mellitus without complications (principal) | CPT/HCPCS: 82947; 99202; 99212 ==

== ENCOUNTER 2021-12-22 10:45 | Outpatient (REF) | payer OTHER, SELFPAY ==
[2021-12-27 13:17] LABS: Vitamin D 25-OH, D2 <4 ng/mL; Vitamin D 25-OH, D3 9 ng/mL; Vitamin D 25-OH, Total 9 ng/mL (30-100)
== END 2021-12-22 10:46 | disposition home or self-care (01) ==
LOC: HO.LAB 10:45
PROVIDERS: PCP Internal Medicine; Visit Provider Nurse Practitioner Acute Care
DX: E55.9 Vitamin D deficiency, unspecified (principal)
CPT/HCPCS: 36415; 82306